=== PATIENT | female | born 1935 | race Caucasian/White ===

== ENCOUNTER 2018-11-18 18:54 | Inpatient (IN) | payer MEDICARE ==
[~2018-11-18] VITALS: Ht 167.6 cm; Wt 64.0 kg
--- NOTE | 2018-11-18 19:00 | NUR ---
Patient was BIBRA for shortness of breath. The yarn mercerizer operator reports she was changing the patient's diaper and rolled her away when the patient began gasping for air and became pale.Ptdenies any chest pain or difficulty breathing at this time. EMS reports the patient had an O2 saturation in the mid 80s upon arrival to the scene but improved to 96 when placed on a NR. Patient isnormally not on O2 at home per caregiver.
--- NOTE | 2018-11-18 19:02 | NUR ---
Report given to GARRETT Rich for PURA.
[2018-11-18] MEDS ORDERED: CARB-93 PO (19:04)
[2018-11-18] MEDS ORDERED: [UNRECOGNIZED DRUG - CODE] PO (19:04)
[2018-11-18] MEDS ORDERED: POLY17PO4 PO (19:04)
[2018-11-18] MEDS ORDERED: LACT10SO PO (19:04)
[2018-11-18] MEDS ORDERED: B CO1TAB6 PO (19:04)
[2018-11-18] MEDS ORDERED: FURO-145 PO (19:04)
[2018-11-18] MEDS ORDERED: GABA-534 PO (19:04)
[2018-11-18] MEDS ORDERED: LEVO175T7 PO (19:04)
[2018-11-18] MEDS ORDERED: CITA40TA11 PO (19:04)
[2018-11-18] MEDS ORDERED: RASA1TAB PO (19:04)
[2018-11-18] MEDS ORDERED: LOSA1TAB9 PO (19:04)
[2018-11-18] MEDS ORDERED: FISH1CAP16 PO (19:04)
[2018-11-18] MEDS ORDERED: AMLO5TAB9 PO (19:04)
[2018-11-18] MEDS ORDERED: OMEP20CA10 PO (19:04)
[2018-11-18] MEDS ORDERED: CHOL100044 PO (19:04)
[2018-11-18] MEDS ORDERED: MULT1TAB73 PO (19:04)
[2018-11-18] MEDS ORDERED: ROPI0.5T PO (19:04)
[2018-11-18] MEDS ORDERED: ASCO500T9 PO (19:04)
--- NOTE | 2018-11-18 19:19 | NUR ---
LOSS PREVENTION AGENT AT BEDSIDE FOR LAB DRAW.
[2018-11-18] MEDS ORDERED: IV NS 0.9% 1,000 ML BAG IV ONE (19:30)
[2018-11-18 19:36] LABS: BASOPHILS % (AUTO) 0.5 % (0.0-2.0); EOSINOPHILS % (AUTO) 0.9 % (0.0-6.0); HEMATOCRIT 30 % (33-45); HEMOGLOBIN 10.1 g/dL (11.5-14.8); LYMPHOCYTES # (AUTO) 0.5 /CMM (0.8-4.8); LYMPHOCYTES % (AUTO) 5.8 % (20.0-44.0); MEAN CORPUSCULAR HGB CONC 33 g/dl (31.0-36.0); MEAN CORPUSCULAR VOLUME 91 fL (82-100); MONOCYTES # (AUTO) 0.5 /CMM (0.1-1.30); MONOCYTES % (AUTO) 5.1 % (2.0-12.0); NEUTROPHILS # (AUTO) 8.1 /CMM (1.8-8.9); NEUTROPHILS % (AUTO) 87.7 % (43.0-81.0); PLATELET COUNT (AUTO) 271 /CMM (150-450); RED BLOOD CELL COUNT(AUTO) 3.33 MIL/uL (4.0-5.2); WHITE BLOOD COUNT (AUTO) 9.2 K/uL (4.3-11.0)
[2018-11-18 19:40] LABS: APPEARANCE,URINE Clear (CLEAR); BILIRUBIN,URINE Negative (NEGATIVE); BLOOD, URINE Small Ery/uL (NEGATIVE); COLOR,URINE Yellow (YELLOW); KETONES,URINE Negative (NEGATIVE); LEUKOCYTE ESTERASE ,URINE Moderate (NEGATIVE); NITRITE, URINE Negative (NEGATIVE); PH,URINE 7.5 (5.0-8.0); PROTEIN,URINE Trace mg/dl (NEGATIVE); UGLUCOSE Negative (NEGATIVE); UROBILINOGEN,URINE 0.2 EU/dL (0.2)
--- NOTE | 2018-11-18 19:45 | NUR ---
PT RESTING IN BED, NAD NOTED. RESPIRATIONS EVEN AND UNLABORED. PULSE OX 97 ON 3L N/C. CAREGIVER AT BEDSIDE. PT ON THE MONITOR AND PULSE OX.
[2018-11-18 19:48] LABS: CALCIUM, SERUM 9.4 mg/dL (8.5-10.1); CARBON DIOXIDE 31 mmol/L (21-32); CHLORIDE 101 mmol/L (98-107); CREATININE 2.1 mg/dL (0.6-1.3); GLUCOSE 105 mg/dL (74-106); POTASSIUM 4.1 mmol/L (3.5-5.1); SODIUM SERUM 138 mmol/L (136-145); UREA NITROGEN, BLOOD 31 mg/dL (7-18)
[2018-11-18 19:52] LABS: BACTERIA,URINE Many /HPF (None Seen); SQUAMOUS EPITHELIAL CELL,UR Few /HPF (None Seen)
[2018-11-18 20:02] LABS: ALANINE AMINOTRANSFERASE 10 U/L (12-78); ALBUMIN 2.7 g/dL (3.4-5.0); ALKALINE PHOSPHATASE 85 U/L (46-116); ASPARTATE AMINOTRANSFERASE 10 U/L (15-37); B-TYPE NATRIURETIC PEPTIDE 292 PG/ML (0-125); BILIRUBIN,DIRECT 0.1 mg/dL (0.0-0.2); BILIRUBIN,TOTAL 0.4 mg/dL (0.2-1.0); TOTAL PROTEIN, SERUM 6.3 g/dL (6.4-8.2)
[2018-11-18] MEDS ORDERED: LEVOFLOXACIN 750 MG /D5W 150ML PIGGYBACK IV ONE (20:30)
[2018-11-18] MEDS ORDERED: FUROSEMIDE 20 MG/2 ML VIAL IV ONE (20:30)
[2018-11-18] MEDS ORDERED: FUROSEMIDE 20 MG/2 ML VIAL ONE (20:39)
[2018-11-18] MEDS ORDERED: LEVOFLOXACIN 750 MG /D5W 150ML 150 ML IV ONE (20:40)
[2018-11-18] MEDS ORDERED: ONDANSETRON HCL/PF 4 MG/2 ML VIAL IVP PRN (21:00)
[2018-11-18] MEDS ORDERED: ACETAMINOPHEN 325 MG TABLET PO PRN ×2 (21:00→21:30)
[2018-11-18] MEDS ORDERED: HYDROCODONE/APAP 5/325MG 1 EACH TABLET PO PRN (21:00)
[2018-11-18] MEDS ORDERED: Z GUARD REMEDY 2 OZ OINT TP PRN (21:00)
[2018-11-18] MEDS ORDERED: ZOLPIDEM TARTRATE 5 MG TABLET PO PRN (21:00)
--- NOTE | 2018-11-18 21:18 | NUR ---
REPORT GIVEN TO RAYMOND TUCKER FOR PURA.
[2018-11-18] MEDS ORDERED: ACETAMINOPHEN 650 MG/20.3 ML UDC ONE (21:25)
[2018-11-18] MEDS ORDERED: ACETAMINOPHEN 650 MG/20.3 ML UDC NG PRN (21:30)
--- NOTE | 2018-11-18 22:00 | NUR ---
WEB COMMUNICATIONS SPECIALIST NOTES PT ARRIVED ON TO THE UNIT AT 2154 VIA GURNEY ACCOMPANIED BY CAREGIVER AND SON. PER CAREGIVER PT BECAME VERY SHORT OF BREATH AND FACIAL COLOR BECAME PALE. UPON ARRIVAL TO ED 02 SAT IN THE 80S. PT HAS A RIGHT AC #20, AND A LEFT FA #20 INTACT AND PATENT. PT HAS HX OF DEMENTIA, PT CONFUSED BUT COOPERATIVE. ALL PATIENT BELONGINGS ACCOUNTED FOR AND DOCUMENTED. PT HAS REDNESS OF SACRUM AND GROIN FOLDS. PT ORIENTED TO THE USE OF THE CALL LIGHT. PT TELE MONITORED AT NSR RATE IN 70S. SAFETY PRECAUTIONS IN PLACE, BED IN LOWEST LOCKED POSITION, X2 SIDE RAILS UP AND CALL LIGHT WITHIN REACH. WILL CONTINUE TO MONITOR.
[2018-11-18] MEDS ORDERED: VANCOMYCIN 1 GM VIAL ONE (22:55)
[2018-11-18] MEDS ORDERED: VANCOMYCIN 1 GM in IV D5W 250ml IV ONE (23:00)
--- NOTE | 2018-11-18 23:30 | NUR ---
RN NOTES CLARIFIED VANCO ORDER WITH DR LIZARRAGA. PER DR ZIA JAVED TO GIVE, CONTINUE TO MONITOR. PRN BENADRYL IF REACTION. PER DR LIZARRAGA, LASIX 40MG TEGAN TO GIVE 6 HOURS AFTER FIRST DOSE. WILL CARRY OUT ORDERED. Addendum: 11/18/18 at 6154 by RAYMOND KAUFFMAN RN ALSO PER DR LIZARRAGA. WANTS PT TO HAVE AGUILAR CATHETER TO MEASURE URINE OUTPUT.
[2018-11-19] MEDS ORDERED: PIPERACILLIN /TAZOBACTAM 2.25 G in IV D5W 50 ML IV ONE ×2
[2018-11-19] MEDS ORDERED: PIPERACILLIN /TAZOBACTAM 2.25 G VIAL IV ONE (00:06)
[2018-11-19] MEDS: FUROSEMIDE 40 MG/4 ML VIAL IV SCH ×2 (03:28→08:14)
--- NOTE | 2018-11-19 06:02 | NUR ---
RN CLOSING NOTES PT RESTING IN BED. PT ALERT TO SELF, COOPERATIVE. NO COMPLAINTS OF PAIN, SOB OR DISTRESS OVERNIGHT. PT HAS A RIGHT AC #20, AND A LEFT FA #20 INTACT AND PATENT. PT TELE MONITORED AT NSR RATE 60-70S. SAFETY PRECAUTIONS IN PLACE, BED IN LOWEST LOCKED POSITION, X2 SIDE RAILS UP AND CALL LIGHT WITHIN REACH. WILL ENDORSE TO DAY SHIFT NURSE FOR CONTINUITY OF CARE.
--- NOTE | 2018-11-19 07:20 | NUR ---
RN NOTES PATIENT A/OX1, BREATHING EVEN AND UNLABORED, ON O2 AT 2LPM VIA NC AND SATTING WELL, NO S/SX OF PAIN AT THIS TIME, KEPT COMFORTABLE, NEEDS ATTENDED AND MET, BED ALARM ON, SIDERAILS X2 UP, CALL LIGHT WITHIN REACH, WILL CONTINUE TOMONITOR.
[2018-11-19 07:26] LABS: B-TYPE NATRIURETIC PEPTIDE 609 PG/ML (0-125); BASOPHILS % (AUTO) 0.5 % (0.0-2.0); CARBON DIOXIDE 32 mmol/L (21-32); CHLORIDE 102 mmol/L (98-107); CREATININE 2.2 mg/dL (0.6-1.3); EOSINOPHILS % (AUTO) 2.3 % (0.0-6.0); GLUCOSE 90 mg/dL (74-106); HEMATOCRIT 29 % (33-45); HEMOGLOBIN 9.9 g/dL (11.5-14.8); LYMPHOCYTES % (AUTO) 17.6 % (20.0-44.0); MAGNESIUM 2.3 mg/dL (1.8-2.4); MEAN CORPUSCULAR HGB CONC 34 g/dl (31.0-36.0); MEAN CORPUSCULAR VOLUME 90 fL (82-100); MONOCYTES # (AUTO) 0.4 /CMM (0.1-1.30); MONOCYTES % (AUTO) 6.4 % (2.0-12.0); NEUTROPHILS # (AUTO) 4.2 /CMM (1.8-8.9); NEUTROPHILS % (AUTO) 73.2 % (43.0-81.0); PHOSPHORUS 4.5 mg/dL (2.5-4.9); PLATELET COUNT (AUTO) 226 /CMM (150-450); POTASSIUM 4.3 mmol/L (3.5-5.1); RED BLOOD CELL COUNT(AUTO) 3.26 MIL/uL (4.0-5.2); SODIUM SERUM 140 mmol/L (136-145); UREA NITROGEN, BLOOD 30 mg/dL (7-18); WHITE BLOOD COUNT (AUTO) 5.8 K/uL (4.3-11.0)
[2018-11-19] MEDS ORDERED: FEE PK DOSING 1 MIN EA MC ONE (07:27)
[2018-11-19 07:28] LABS: CHOLESTEROL 120 mg/dL (<200); HDL CHOLESTEROL 42 mg/dL (40-60); LDL 72 mg/dL (0-99); THYROID STIMULATING HORMONE 0.229 uIU/mL (0.358-3.74); TRIGLYCERIDES 69 mg/dL (30-150)
[2018-11-19] MEDS ORDERED: LEVOTHYROXINE SODIUM 175 MCG TABLET PO SCH (07:30)
[2018-11-19 08:00] VITALS: BP 129/67
[2018-11-19] MEDS: CITALOPRAM HYDROBROMIDE 20 MG TABLET PO SCH (08:05)
[2018-11-19] MEDS: ASPIRIN EC 81 MG TABLET.DR PO SCH (08:05)
[2018-11-19] MEDS: GABAPENTIN 300 MG CAPSULE PO SCH ×2 (08:05→16:29)
[2018-11-19] MEDS: CARBIDOPA/LEVODOPA 25/100 MG 1 UDTAB PO SCH ×3 (08:05→16:29)
[2018-11-19] MEDS: PANTOPRAZOLE 40 MG TABLET.DR PO SCH (08:06)
[2018-11-19] MEDS: PIPERACILLIN /TAZOBACTAM 3.375 G in IV D5W 100 ML IV SCH ×2 (09:09→20:12)
[2018-11-19] MEDS: FERROUS SULFATE (325 MG) 325 MG/TAB TABLET PO SCH ×2 (10:51→16:29)
[2018-11-19 16:00] VITALS: BP 113/60
[2018-11-19] MEDS: ropiniROLE 0.5 MG TABLET PO SCH (17:11)
--- NOTE | 2018-11-19 18:24 | NUR ---
RN NOTES PATIENT A/OX1, FAMILY AND CAREGIVER AT BEDSIDE, PATIENT IS PARTICULAR WITH MEALS, HOWEVER PREFERS PEANUT BUTTER AND JELLY SANDWICHES. BREATHING EVEN AND UNLABORED, IN ROOM AIR WITH O2 SAT OF 94%, NO SOB NOTED, DENIES PAIN OR DISCOMFORT, TURNED AND REPOSITIONED EVERY 2 HOURS, MEPILEX APPLIED TO SACRAL AREA, Z-GUARD APPLIED TO SURROUNDING AREA, NEEDS ATTENDED AND MET, CALL LIGHT WITHIN REACH, WILL ENDORSE TO KEYBOARD SPECIALIST FOR PUAR.
--- NOTE | 2018-11-19 19:39 | NUR ---
RN MS OPENING NOTES PT IN BED AWAKE, ALERT ORIENTEDX2 WITH SON AT BEDSIDE. BREATHING EVEN AND UNLABORED ON ROOM AIR, NO SOB NOTED. NO COMPLAINT OF PAIN OR DISCOMFORT AT THIS TIME. IV IN R FA #20G AND R AC #20G TKO. AGUILAR IN PLACE AND DRAINING TO CLEAR YELLOW, NO SEDIMENTS. BED IN LOWEST LOCKED POSITION, CALL LIGHT WITHIN REACH AT ALL TIMES, WILL CONTINUE TO MONITOR.
[2018-11-19 20:00] VITALS: BP 135/76
--- NOTE | 2018-11-20 06:04 | NUR ---
RN MS CLOSING NOTES PT REMAINS IN BED AWAKE, INTERMITTENTLY SLEEPING, ALERT ORIENTEDX2. BREATHING EVEN AND UNLABORED ON ROOM AIR, NO SOB NOTED. NO COMPLAINT OF PAIN OR DISCOMFORT AT THIS TIME. IV IN R FA #20G AND R AC #20G TKO. AGUILAR IN PLACE AND DRAINING TO CLEAR YELLOW, NO SEDIMENTS OUTPUT OF 1100ML. I MEDIUM BM. BED IN LOWEST LOCKED POSITION, CALL LIGHT WITHIN REACH AT ALL TIMES, WILL ENDORSE TO DAY NURSE FOR PURA..
--- NOTE | 2018-11-20 07:10 | NUR ---
RN NOTES PATIENT A/OX1, BREATHING EVEN AND UNLABORED, NO SOB NOTED, IV SITE PATENT AND INTACT, KEPT ON SALINE LOCK, KEPT PATIENT COMFORTABLE, NEEDS ATTENDED, CALL LIGHT WITHIN REACH, SAFETY MEASURES IN PLACED, WILL CONTINUE TO MONITOR.
[2018-11-20 07:41] LABS: BASOPHILS # (AUTO) 0.1 /CMM (0.0-0.2); BASOPHILS % (AUTO) 0.8 % (0.0-2.0); HEMATOCRIT 30 % (33-45); HEMOGLOBIN 10.4 g/dL (11.5-14.8); LYMPHOCYTES # (AUTO) 1.6 /CMM (0.8-4.8); LYMPHOCYTES % (AUTO) 23.6 % (20.0-44.0); MEAN CORPUSCULAR HGB CONC 35 g/dl (31.0-36.0); MEAN CORPUSCULAR VOLUME 90 fL (82-100); MONOCYTES # (AUTO) 0.5 /CMM (0.1-1.30); MONOCYTES % (AUTO) 7.7 % (2.0-12.0); NEUTROPHILS # (AUTO) 4.5 /CMM (1.8-8.9); NEUTROPHILS % (AUTO) 64.9 % (43.0-81.0); PLATELET COUNT (AUTO) 226 /CMM (150-450)
[2018-11-20 07:53] LABS: ALANINE AMINOTRANSFERASE 10 U/L (12-78); ALBUMIN 2.4 g/dL (3.4-5.0); ALKALINE PHOSPHATASE 70 U/L (46-116); ASPARTATE AMINOTRANSFERASE 12 U/L (15-37); BILIRUBIN,TOTAL 0.3 mg/dL (0.2-1.0); CALCIUM, SERUM 8.9 mg/dL (8.5-10.1); CARBON DIOXIDE 32 mmol/L (21-32); CHLORIDE 101 mmol/L (98-107); CREATININE 2.1 mg/dL (0.6-1.3); GLUCOSE 86 mg/dL (74-106); MAGNESIUM 2.1 mg/dL (1.8-2.4); PHOSPHORUS 3.4 mg/dL (2.5-4.9); POTASSIUM 3.5 mmol/L (3.5-5.1); SODIUM SERUM 140 mmol/L (136-145); TOTAL PROTEIN, SERUM 5.6 g/dL (6.4-8.2); UREA NITROGEN, BLOOD 28 mg/dL (7-18)
[2018-11-20 08:00] VITALS: BP 141/81
[2018-11-20] MEDS: ASPIRIN EC 81 MG TABLET.DR PO SCH (08:23)
[2018-11-20] MEDS: PIPERACILLIN /TAZOBACTAM 3.375 G in IV D5W 100 ML IV SCH ×2 (08:23→20:15)
[2018-11-20] MEDS: PANTOPRAZOLE 40 MG TABLET.DR PO SCH (08:23)
[2018-11-20] MEDS: CARBIDOPA/LEVODOPA 25/100 MG 1 UDTAB PO SCH ×3 (08:24→16:30)
[2018-11-20] MEDS: FERROUS SULFATE (325 MG) 325 MG/TAB TABLET PO SCH (08:24)
[2018-11-20] MEDS: CITALOPRAM HYDROBROMIDE 20 MG TABLET PO SCH (08:24)
[2018-11-20] MEDS: GABAPENTIN 300 MG CAPSULE PO SCH ×2 (08:24→16:30)
[2018-11-20] MEDS ORDERED: ASPI-1152 PO (10:25)
[2018-11-20] MEDS ORDERED: LEVO137T2 PO (10:25)
[2018-11-20] MEDS ORDERED: LEVO500T90 PO (10:25)
[2018-11-20] MEDS ORDERED: VANCOMYCIN 1 GM in IV D5W 250 ML IV SCH (11:00)
[2018-11-20 16:00] VITALS: BP 154/79
--- NOTE | 2018-11-20 16:00 | NUR ---
RN NOTES PATIENT HAS NOT VOIDED SINCE AGUILAR CATHETER HAS BEEN REMOVED, BLADDER SCAN DONE AND IT SHOWS >200ML, DR. ESCOBEDO MADE AWARE AND GAVE ORDER TO HOLD THE DISCHARGE, AND TO DO A BLADDER SCAN EVERY 6 HOURS, AND DO A STRAIGHT CATHETER IF URINE IS > 200CC. STOP WHEN PATIENT VOIDS. FAMILY AT BEDSIDE AND MADE AWARE. IN AND OUT STRAIGHT CATHETER DONE AND URINE OUTPUT SHOWS 500CC. WILL CONTINUE TO MONITOR.
[2018-11-20] MEDS: LACTOBACILLUS RHAMNOSUS GG 1 EACH CAP.SPRINK PO SCH (16:31)
[2018-11-20] MEDS: AMLODIPINE BESYLATE 5 MG TABLET PO SCH (16:31)
[2018-11-20] MEDS: ropiniROLE 0.5 MG TABLET PO SCH (17:49)
--- NOTE | 2018-11-20 18:41 | NUR ---
RN NOTES PATIENT IN NO DISTRESS, BREATHING EVEN AND UNLABORED, NO SOB NOTED, PATIENT STILL HASN'T VOIDED ON HER OWN, FAMILY AT BEDSIDE, SKIN CARE RENDERED, Z-GUARD APPLIED, TURNED AND REPOSITIONED EVERY 2 HOURS, CHET. HEELS OFFLOADED, NEEDS ATTENDED, CALL LIGHT WITHIN REACH, WILL ENDORSE TO SAFETY SUPERVISOR FOR PURA.
--- NOTE | 2018-11-20 19:58 | NUR ---
RN MS OPENING NOTES PT IN BED AWAKE, ALERT ORIENTEDX2. BREATHING EVEN AND UNLABORED ON ROOM AIR, NO SOB NOTED. NO COMPLAINT OF PAIN OR DISCOMFORT AT THIS TIME. IV IN R FA #20G AND L FA #20G TKO. BED IN LOWEST LOCKED POSITION, CALL LIGHT WITHIN REACH AT ALL TIMES, WILL CONTINUE TO MONITOR.
[2018-11-20 20:10] VITALS: BP 158/80
--- NOTE | 2018-11-21 | NUR ---
BLADDER SCAN SHOWS <200ML, STRAIGHT CATH INSERTED, 1200ML COLLECTED, CLEAR YELLOW, MINIMAL SEDIMENTS Addendum: 11/21/18 at 0615 by ROXANNE GROSSMAN RN >200ML
--- NOTE | 2018-11-21 05:00 | NUR ---
BLADDER SCAN SHOWED >200ML, STRAIGHT CATH INSERTED AND COLLECTED 375ML
--- NOTE | 2018-11-21 06:13 | NUR ---
RN MS CLOSING NOTES PT REMAINS IN BED AWAKE, INTERMITTENTLY SLEEPING, ALERT ORIENTEDX2. BREATHING EVEN AND UNLABORED ON ROOM AIR, NO SOB NOTED. NO COMPLAINT OF PAIN OR DISCOMFORT AT THIS TIME. IV IN R FA #20G AND R AC #20G TKO. NO BM. BED IN LOWEST LOCKED POSITION, CALL LIGHT WITHIN REACH AT ALL TIMES, WILL ENDORSE TO DAY NURSE FOR PURA..
[2018-11-21] MEDS: PANTOPRAZOLE 40 MG TABLET.DR PO SCH (07:30)
[2018-11-21 07:58] LABS: CALCIUM, SERUM 8.5 mg/dL (8.5-10.1); CARBON DIOXIDE 29 mmol/L (21-32); CHLORIDE 104 mmol/L (98-107); CREATININE 1.8 mg/dL (0.6-1.3); GLUCOSE 99 mg/dL (74-106); POTASSIUM 3.5 mmol/L (3.5-5.1); SODIUM SERUM 141 mmol/L (136-145); UREA NITROGEN, BLOOD 18 mg/dL (7-18)
[2018-11-21 08:00] VITALS: BP 139/88
[2018-11-21] MEDS: PIPERACILLIN /TAZOBACTAM 3.375 G in IV D5W 100 ML IV SCH ×2 (10:26→20:22)
[2018-11-21] MEDS: GABAPENTIN 300 MG CAPSULE PO SCH ×2 (10:27→17:42)
[2018-11-21] MEDS: CARBIDOPA/LEVODOPA 25/100 MG 1 UDTAB PO SCH ×3 (10:27→17:42)
[2018-11-21] MEDS: ASPIRIN EC 81 MG TABLET.DR PO SCH (10:27)
[2018-11-21] MEDS: LACTOBACILLUS RHAMNOSUS GG 1 EACH CAP.SPRINK PO SCH ×2 (10:27→17:42)
[2018-11-21] MEDS: CITALOPRAM HYDROBROMIDE 20 MG TABLET PO SCH (10:28)
[2018-11-21] MEDS: AMLODIPINE BESYLATE 5 MG TABLET PO SCH (10:36)
--- NOTE | 2018-11-21 11:15 | NUR ---
BLADDER SCAN PERFORMED, PT. HAD 533 CC OF URINE RETENTION ON BLADDER SCAN. PT. HAD PHYSICAL THERAPY, PATIENT MARCHED IN PLACE AND WAS PUT ON A BEDSIDE COMMODE AFTER TO HELP STIMULATE URINE OUTPUT.
--- NOTE | 2018-11-21 13:00 | NUR ---
ATTEMPTED TO STRAIGHT CATHETERIZE PT. THREE TIMES AND WAS UNABLE TO HAVE ANY URINE OUTPUT. WILL REPORT TO DOCTOR.
[2018-11-21 16:00] VITALS: BP 100/63
--- NOTE | 2018-11-21 17:15 | NUR ---
AGUILAR CATHETER WAS INSERTED PT. HAD 700 CC OF CLEAR, AND YELLOW URINE OUTPUT.
--- NOTE | 2018-11-21 18:00 | NUR ---
RN NOTES DISCUSSED WITH UROLOGIST ABOUT PT. CONDITION, AND DISCHARGE. PER UROLOGIST, PT. WAS SEEN LAST AND EVALUATED LAST NIGHT, AND THAT PT. WAS RECOMMENDED TO HAVE A AGUILAR CATHETER INSERTED AND CAN BE DISCHARGE HOME WITH A AGUILAR.
[2018-11-21] MEDS: ropiniROLE 0.5 MG TABLET PO SCH (18:29)
--- NOTE | 2018-11-21 19:10 | NUR ---
DISCHARGE NOTES PT. WAS DISCHARGED IN STABLE CONDITION WITH CAREGIVER AT BEDSIDE. AMBULANCE WILL TAX PREPARER PT. AT 1830. PER UROLOGIST PT. CAN BE DISCHARGE WITH A AGUILAR CATHETER HOME WITH CAREGIVER, AND FOLLOW UP WITH UROLOGIST IN 1 WEEK. DISCHARGE PACKET WAS SIGNED WITH ANOTHER NURSE. BELONGINGS LIST WAS CHECKED AND SIGNED. PT.'S SON, SKIP WAS INFORMED THAT AMBULANCE WILL TRANSFER PT. HOME, AND SAID THAT HE WILL MEET HER AT THE HOSPITAL BEFORE TRANSFER. ALL QUESTIONS ANSWERED. WILL ENDORSE DISCHARGE AND REPORT TO NURSE.
[2018-11-21 20:00] VITALS: BP 117/73
--- NOTE | 2018-11-21 20:08 | NUR ---
RN MS OPENING NOTES RECEIVED DISCHARGE REPORT FROM DAY NURSE, AWAITING AMBULANCE. PT READY, STABLE WITH FAMILY AT BEDSIDE.
--- NOTE | 2018-11-21 22:25 | NUR ---
AMBULANCE ARRIVED AT 2210, REPORT GIVEN TO EMT, PT IV REMOVED, D/C PACKAGED GIVEN TO SON AND DISCUSSED F/U CARE AND PRESCRIPTIONS. PT DISCHARGED
[2018-11-30] MEDS ORDERED: CEPH-569 PO (10:45)
== END 2018-11-21 22:25 | disposition home health service (06) | DRG 871 ==
LOC: ER 18:56 → TELE 21:04 → MED 11-19 09:12
PROVIDERS: ATTEND Student in an Organized Health Care Education/Training Program
DX: A41.9 Sepsis, unspecified organism (principal); J96.91 Respiratory failure, unspecified with hypoxia; I50.33 Acute on chronic diastolic (congestive) heart failure; E44.0 Moderate protein-calorie malnutrition; N17.9 Acute kidney failure, unspecified; N39.0 Urinary tract infection, site not specified; I13.0 Hypertensive heart and chronic kidney disease with heart failure and stage 1 through stage 4 chronic kidney disease, or unspecified chronic kidney disease; G20 Parkinson's disease; Z88.0 Allergy status to penicillin; Z79.899 Other long term (current) drug therapy; E03.9 Hypothyroidism, unspecified; D50.9 Iron deficiency anemia, unspecified; E55.9 Vitamin D deficiency, unspecified; E78.5 Hyperlipidemia, unspecified; F02.80 Dementia in other diseases classified elsewhere, unspecified severity, without behavioral disturbance, psychotic disturbance, mood disturbance, and anxiety; F03.90 Unspecified dementia, unspecified severity, without behavioral disturbance, psychotic disturbance, mood disturbance, and anxiety; F32.9 Major depressive disorder, single episode, unspecified; I25.10 Atherosclerotic heart disease of native coronary artery without angina pectoris; N18.9 Chronic kidney disease, unspecified; K59.00 Constipation, unspecified; K21.9 Gastro-esophageal reflux disease without esophagitis; R33.9 Retention of urine, unspecified
CPT/HCPCS: 36415; 71045-TC; 76770-TC; 80048-TC; 80053-TC; 80061-TC; 80076-TC; 80202-TC; 81000-TC; 82728-TC; 83540-TC; 83605-TC; 83735-TC; 83880; 84100-TC; 84439-TC; 84443-TC; 84484-TC; 85025-TC; 85730-TC; 86706; 86803; 87040-TC; 87081-TC; 87086-TC; 87186-TC; 87340; 87400; 87806; 93307-TC; 97530-TC; G0378; J1940; J1956; J2543; J3370; J7030; J7050; J7060

== ENCOUNTER 2018-11-28 14:37 | Inpatient (IN) | payer MEDICARE ==
[~2018-11-28] VITALS: Ht 165.1 cm; Wt 64.0 kg
[~2018-11-28 14:37] MED LIST: AMLO5TAB9 PO; ASCO500T9 PO; ASPI-1152 PO; B CO1TAB6 PO; CARB-93 PO; CHOL100044 PO; CITA40TA11 PO; FISH1CAP16 PO; GABA-534 PO; LACT10SO PO; LEVO137T2 PO; LEVO500T90 PO; MULT1TAB73 PO; OMEP20CA10 PO; POLY17PO4 PO; RASA1TAB PO; ROPI0.5T PO; [UNRECOGNIZED DRUG - CODE] PO
--- NOTE | 2018-11-28 14:46 | NUR ---
PT BIB RA for episode of altered mental status at home. PT IS AAOX1, NOT IN RESPIRATORY DISTRESS, V/S STABLE, KEPT RESTED AND COMFORTABLE. WILL CONTINUE TO MONITOR.
[2018-11-28] MEDS ORDERED: IV NS 0.9% 1,000 ML BAG IV ONE (15:00)
--- NOTE | 2018-11-28 15:00 | NUR ---
SEEN AND EXAMINED BY DR. BLACK.
[2018-11-28 15:07] LABS: BASOPHILS # (AUTO) 0.1 /CMM (0.0-0.2); BASOPHILS % (AUTO) 1.3 % (0.0-2.0); EOSINOPHILS % (AUTO) 2.6 % (0.0-6.0); HEMATOCRIT 30 % (33-45); HEMOGLOBIN 10.3 g/dL (11.5-14.8); LYMPHOCYTES # (AUTO) 1.8 /CMM (0.8-4.8); LYMPHOCYTES % (AUTO) 26.6 % (20.0-44.0); MEAN CORPUSCULAR HGB CONC 34 g/dl (31.0-36.0); MEAN CORPUSCULAR VOLUME 90 fL (82-100); MONOCYTES # (AUTO) 0.4 /CMM (0.1-1.30); MONOCYTES % (AUTO) 5.9 % (2.0-12.0); NEUTROPHILS # (AUTO) 4.3 /CMM (1.8-8.9); NEUTROPHILS % (AUTO) 63.6 % (43.0-81.0); PLATELET COUNT (AUTO) 243 /CMM (150-450); RED BLOOD CELL COUNT(AUTO) 3.38 MIL/uL (4.0-5.2); WHITE BLOOD COUNT (AUTO) 6.7 K/uL (4.3-11.0)
--- NOTE | 2018-11-28 15:10 | NUR ---
PT LABS DRAWNED AND SENT TO LAB. AWAITING RESULTS.
[2018-11-28 15:22] LABS: CALCIUM, SERUM 9.5 mg/dL (8.5-10.1); CARBON DIOXIDE 31 mmol/L (21-32); CHLORIDE 101 mmol/L (98-107); CREATININE 2.4 mg/dL (0.6-1.3); GLUCOSE 102 mg/dL (74-106); POTASSIUM 4.1 mmol/L (3.5-5.1); SODIUM SERUM 135 mmol/L (136-145); UREA NITROGEN, BLOOD 30 mg/dL (7-18)
[2018-11-28 15:33] LABS: ALANINE AMINOTRANSFERASE 8 U/L (12-78); ALBUMIN 2.6 g/dL (3.4-5.0); ALKALINE PHOSPHATASE 74 U/L (46-116); ASPARTATE AMINOTRANSFERASE 11 U/L (15-37); BILIRUBIN,TOTAL 0.2 mg/dL (0.2-1.0); LIPASE 135 U/L (73-393); TOTAL PROTEIN, SERUM 5.7 g/dL (6.4-8.2)
[2018-11-28 16:49] LABS: APPEARANCE,URINE Clear (CLEAR); BILIRUBIN,URINE Negative (NEGATIVE); BLOOD, URINE Small Ery/uL (NEGATIVE); COLOR,URINE Yellow (YELLOW); KETONES,URINE Trace (NEGATIVE); LEUKOCYTE ESTERASE ,URINE Trace (NEGATIVE); NITRITE, URINE Negative (NEGATIVE); PROTEIN,URINE >=300 mg/dl (NEGATIVE); UGLUCOSE Negative (NEGATIVE); UROBILINOGEN,URINE 0.2 EU/dL (0.2)
--- NOTE | 2018-11-28 16:50 | NUR ---
URINE SPECIMEN COLLECTED AND SENT TO LAB.
[2018-11-28 17:02] LABS: BACTERIA,URINE Few /HPF (None Seen); SQUAMOUS EPITHELIAL CELL,UR Few /HPF (None Seen); YEAST,URINE Moderate /HPF (None Seen)
[2018-11-28 17:03] LABS: MUCUS,URINE Moderate /LPF (None Seen); URINE AMORPHOUS URATE Moderate /HPF (None Seen)
[2018-11-28] MEDS ORDERED: FLUCONAZOLE (100 MG) 100 MG TABLET PO ONE (17:30)
[2018-11-28] MEDS ORDERED: FLUCONAZOLE (100 MG) 100 MG TABLET ONE (17:36)
[2018-11-28] MEDS ORDERED: PIPERACILLIN /TAZOBACTAM 3.375 G in IV D5W 50 ML IV ONE (18:00)
--- NOTE | 2018-11-28 18:23 | NUR ---
ADMIT TO [facility] 314-1 DX UTI, AMS, DEHYDRATION ACCEPTING YOSELIN
--- NOTE | 2018-11-28 19:01 | NUR ---
REPORT GIVEN TO GARRETT ANGULO FOR PURA.
[2018-11-28] MEDS ORDERED: IV NS 0.9% 1,000 ML IV PRN (19:03)
--- NOTE | 2018-11-28 19:20 | NUR ---
MANAGER FUND OPENING NOTES: RECEIVED PT ON 2LPM VIA NC AND IS TOLERATING WELL. SON AND CAREGIVER AT BEDSIDE. PT IS A/OX1 TO NAME ONLY. NO SOB NOTED. NO S/S OF DISTRESS. PT NOT VERBALIZING ANY PAIN. PT HAS AGUILAR CATH AND IS ATTACHED TO DRAINAGE BAG. PT HAS L FOREARM #20G AND IS PATENT AND INTACT. PT TO BE PLACED ON TELE MONITOR. BED KEPT IN LOW, LOCKED POSITION, AND SIDE RAILS X 2UP. BED ALARM ACTIVATED. WILL CONTINUE TO MONITOR PT.
[2018-11-28] MEDS ORDERED: Z GUARD REMEDY 2 OZ OINT TP PRN (19:30)
[2018-11-28] MEDS ORDERED: ZOLPIDEM TARTRATE 5 MG TABLET PO PRN (19:30)
[2018-11-28] MEDS ORDERED: ONDANSETRON HCL/PF 4 MG/2 ML VIAL IVP PRN (19:30)
[2018-11-28] MEDS ORDERED: ACETAMINOPHEN 325 MG TABLET PO PRN (19:30)
[2018-11-28] MEDS ORDERED: MAG HYDROX/AL HYDROX/SIMETH 30 ML UDC PO PRN (19:30)
[2018-11-28] MEDS ORDERED: HYDROCODONE/APAP 5/325MG 1 EACH TABLET PO PRN (19:30)
[2018-11-28] MEDS ORDERED: MAGNESIUM HYDROXIDE 30 ML UDC PO PRN (19:30)
[2018-11-28 20:00] VITALS: BP 109/55
[2018-11-28] MEDS: LACTULOSE 10 G/15 ML UDC (PYXIS) PO SCH (20:54)
[2018-11-28] MEDS ORDERED: QUET25TA PO (22:39)
[2018-11-28] MEDS ORDERED: CEFTRIAXONE 1 G VIAL ONE (23:36)
[2018-11-28] MEDS: CEFTRIAXONE 1 G in IV D5W 50 ML IV SCH (23:43)
[2018-11-29] VITALS: BP 117/60
[2018-11-29 04:00] VITALS: BP 111/56
--- NOTE | 2018-11-29 06:51 | NUR ---
DEOILING MACHINE OPERATOR CLOSING NOTES: ALL NEEDS WERE ATTENDED AND ANTICIPATED FOR. PT KEPT CLEAN, DRY, AND COMFORTABLE. PT REMAINS ON 2LPM VIA NC AND IS TOLERATING WELL. PT ASLEEP AT THIS TIME AND RESTING COMFORTABLY. PT HAS AGUILAR CATH AND IS ATTACHED TO DRAINAGE BAG WITH YELLOW URINE DRAINING. OUTPUT WAS 1125ML. PT HAS IV ON L FOREARM #20G AND IS PATENT AND INTACT. CURRENTLY H/L. BED ALARM ACTIVATED. PT ON TELE BOX AND READING SHOWS SR 64 WITH OCCASIONAL PVCS AND PACS. BED KEPT IN LOW, LOCKED POSITION, AND SIDE RAILS X 2UP. WILL ENDORSE TO AM NURSE FOR PURA.
[2018-11-29 07:31] LABS: CHOLESTEROL 127 mg/dL (<200); HDL CHOLESTEROL 37 mg/dL (40-60); LDL 81 mg/dL (0-99); TRIGLYCERIDES 90 mg/dL (30-150)
[2018-11-29 07:35] LABS: BASOPHILS % (AUTO) 0.7 % (0.0-2.0); EOSINOPHILS % (AUTO) 3.8 % (0.0-6.0); HEMATOCRIT 30 % (33-45); HEMOGLOBIN 10.2 g/dL (11.5-14.8); LYMPHOCYTES # (AUTO) 1.8 /CMM (0.8-4.8); LYMPHOCYTES % (AUTO) 28.2 % (20.0-44.0); MEAN CORPUSCULAR HGB CONC 34 g/dl (31.0-36.0); MEAN CORPUSCULAR VOLUME 89 fL (82-100); MONOCYTES # (AUTO) 0.4 /CMM (0.1-1.30); MONOCYTES % (AUTO) 6.5 % (2.0-12.0); NEUTROPHILS % (AUTO) 60.8 % (43.0-81.0); PLATELET COUNT (AUTO) 234 /CMM (150-450); RED BLOOD CELL COUNT(AUTO) 3.34 MIL/uL (4.0-5.2); WHITE BLOOD COUNT (AUTO) 6.5 K/uL (4.3-11.0)
[2018-11-29 07:36] LABS: CALCIUM, SERUM 9.4 mg/dL (8.5-10.1); CARBON DIOXIDE 29 mmol/L (21-32); CHLORIDE 103 mmol/L (98-107); CREATININE 2.1 mg/dL (0.6-1.3); GLUCOSE 83 mg/dL (74-106); MAGNESIUM 2.4 mg/dL (1.8-2.4); PHOSPHORUS 4.1 mg/dL (2.5-4.9); POTASSIUM 4.2 mmol/L (3.5-5.1); SODIUM SERUM 140 mmol/L (136-145); UREA NITROGEN, BLOOD 28 mg/dL (7-18)
[2018-11-29 08:00] VITALS: BP 110/75
--- NOTE | 2018-11-29 08:00 | NUR ---
ms rn received on bed,awake,confused,not in any form of distress, respirations even and unlabored,no sob noted, lungs are clear,abdomen soft,positive bowel sounds,denies pain at this time.
[2018-11-29] MEDS: CARBIDOPA/LEVODOPA 25/100 MG 1 UDTAB PO SCH ×3 (09:00→17:15)
[2018-11-29] MEDS: LACTULOSE 10 G/15 ML UDC (PYXIS) PO SCH ×3 (09:00→17:16)
--- NOTE | 2018-11-29 09:20 | NUR ---
ms rn due meds given.tolerated well.
--- NOTE | 2018-11-29 10:00 | NUR ---
ms rn child care teacher at bedside. iv heplock inserted at left forearm g22, w/ good venous return.
[2018-11-29] MEDS: GABAPENTIN 300 MG CAPSULE PO SCH ×2 (12:21→17:16)
[2018-11-29] MEDS: ASCORBIC ACID 500 MG TABLET PO SCH (12:22)
[2018-11-29] MEDS: LEVOTHYROXINE SODIUM 137 MCG TABLET PO SCH (12:23)
[2018-11-29] MEDS: MULTIVITAMINS,THERAGRAN 1 UDTAB TABLET PO SCH (12:23)
[2018-11-29] MEDS: PANTOPRAZOLE 40 MG TABLET.DR PO SCH (12:23)
[2018-11-29] MEDS: CHOLECALCIFEROL 1,000 UNIT TABLET (VIT D3) PO SCH (12:23)
[2018-11-29] MEDS: POLYETHYLENE GLYCOL 3350 17 GM POWD.PACK PO SCH ×2 (12:24→17:16)
[2018-11-29] MEDS: CITALOPRAM HYDROBROMIDE 20 MG TABLET PO SCH (12:24)
[2018-11-29] MEDS: VITAMIN B COMP W-C 1 TAB TABLET PO SCH (12:24)
[2018-11-29] MEDS: CALCIUM CITRATE(CITRACAL) /VITAMIN D 1 TAB TABLET PO SCH (12:29)
[2018-11-29] MEDS: ASPIRIN EC 81 MG TABLET.DR PO SCH (12:30)
[2018-11-29 16:00] VITALS: BP 117/62
[2018-11-29] MEDS: AMLODIPINE BESYLATE 5 MG TABLET PO SCH (17:16)
[2018-11-29] MEDS ORDERED: ropiniROLE 0.5 MG TABLET PO SCH (18:00)
--- NOTE | 2018-11-29 19:35 | NUR ---
RN OPENING NOTES RECEIVED REPORT FROM DAYSHIFT RNCUCO. FOUND Pt AWAKE, RESTING IN BED. FAMILY VISITING AT BEDSIDE. NO S/S OF ACUTE DISTRESS OR SOB NOTED. RESPIRATIONS EVEN AND UNLABORED. Pt IS A/OX1, CONFUSED, PER BASELINE. AGUILAR IN PLACE. IV ACCESS ON LFA #20G. SAFETY MEASURES IN PLACE. BED LOW, LOCKED, HOB ELEVATED, SIDE RAILS UP, CALL LIGHT AND BEDSIDE TABLE WITHIN REACH. WILL CONTINUE TO MONITOR Pt's CONDITION AND SAFETY THROUGHOUT THE NIGHT.
[2018-11-29 20:00] VITALS: BP 116/60
[2018-11-29] MEDS: CEFTRIAXONE 1 G in IV D5W 50 ML IV SCH (23:32)
--- NOTE | 2018-11-30 06:27 | NUR ---
RN CLOSING NOTES NO SIGNIFICANT CHANGES IN Pt's CONDITION. Pt REMAINS STABLE PER BASELINE. Pt IS RESTING COMFORTABLY IN BED. RESPIRATIONS EVEN AND UNLABORED. NO S/S OF ACUTE DISTRESS OR SOB NOTED DURING THE NIGHT. ALL NEEDS MET AND ATTENDED TO. SAFETY MEASURES IN PLACE. WILL ENDORSE TO DAYSHIFT RN FOR Pt's PURA.
[2018-11-30 07:01] LABS: BASOPHILS % (AUTO) 0.5 % (0.0-2.0); EOSINOPHILS % (AUTO) 3.8 % (0.0-6.0); HEMATOCRIT 31 % (33-45); HEMOGLOBIN 10.7 g/dL (11.5-14.8); LYMPHOCYTES # (AUTO) 1.9 /CMM (0.8-4.8); LYMPHOCYTES % (AUTO) 26.4 % (20.0-44.0); MEAN CORPUSCULAR HGB CONC 34 g/dl (31.0-36.0); MEAN CORPUSCULAR VOLUME 89 fL (82-100); MONOCYTES # (AUTO) 0.5 /CMM (0.1-1.30); MONOCYTES % (AUTO) 6.5 % (2.0-12.0); NEUTROPHILS # (AUTO) 4.6 /CMM (1.8-8.9); NEUTROPHILS % (AUTO) 62.8 % (43.0-81.0); PLATELET COUNT (AUTO) 241 /CMM (150-450); RED BLOOD CELL COUNT(AUTO) 3.52 MIL/uL (4.0-5.2); WHITE BLOOD COUNT (AUTO) 7.3 K/uL (4.3-11.0)
[2018-11-30 07:27] LABS: CARBON DIOXIDE 28 mmol/L (21-32); CHLORIDE 107 mmol/L (98-107); CREATININE 1.7 mg/dL (0.6-1.3); GLUCOSE 92 mg/dL (74-106); POTASSIUM 3.9 mmol/L (3.5-5.1); SODIUM SERUM 143 mmol/L (136-145); UREA NITROGEN, BLOOD 25 mg/dL (7-18)
--- NOTE | 2018-11-30 07:55 | NUR ---
ms rn received on bed, awake,alert,oriented x 1,not in any form of distress, respirations even and unlabored,no sob noted, lungs are diminish,abdomen soft,positive bowel sounds,denies pain at this time,will monitor patient's condition.
[2018-11-30 08:00] VITALS: BP 126/76
--- NOTE | 2018-11-30 09:00 | NUR ---
gloria wood breakfast served,due meds given,tolerated well.
[2018-11-30] MEDS: MULTIVITAMINS,THERAGRAN 1 UDTAB TABLET PO SCH (09:57)
[2018-11-30] MEDS: CITALOPRAM HYDROBROMIDE 20 MG TABLET PO SCH (09:57)
[2018-11-30] MEDS: GABAPENTIN 300 MG CAPSULE PO SCH (09:57)
[2018-11-30] MEDS: ASPIRIN EC 81 MG TABLET.DR PO SCH (09:57)
[2018-11-30 09:58] VITALS: BP 146/76
[2018-11-30] MEDS: LEVOTHYROXINE SODIUM 137 MCG TABLET PO SCH (09:58)
[2018-11-30] MEDS: VITAMIN B COMP W-C 1 TAB TABLET PO SCH (09:58)
[2018-11-30] MEDS: CHOLECALCIFEROL 1,000 UNIT TABLET (VIT D3) PO SCH (09:58)
[2018-11-30] MEDS: POLYETHYLENE GLYCOL 3350 17 GM POWD.PACK PO SCH (09:58)
[2018-11-30] MEDS: LACTULOSE 10 G/15 ML UDC (PYXIS) PO SCH ×2 (09:58→14:16)
[2018-11-30] MEDS: AMLODIPINE BESYLATE 5 MG TABLET PO SCH (09:58)
[2018-11-30] MEDS: ASCORBIC ACID 500 MG TABLET PO SCH (09:58)
[2018-11-30] MEDS: CARBIDOPA/LEVODOPA 25/100 MG 1 UDTAB PO SCH ×2 (09:58→14:16)
[2018-11-30] MEDS: CALCIUM CITRATE(CITRACAL) /VITAMIN D 1 TAB TABLET PO SCH (10:00)
--- NOTE | 2018-11-30 10:00 | NUR ---
ms rn was seen by adriel kumar/ order to go home today.
[2018-11-30] MEDS: PANTOPRAZOLE 40 MG TABLET.DR PO SCH (10:02)
[2018-11-30] MEDS ORDERED: CEPH-569 PO (10:45)
--- NOTE | 2018-11-30 12:00 | NUR ---
ms rn career portals teacher came, made aware of discharge.
--- NOTE | 2018-11-30 14:00 | NUR ---
ms rn went home accompanied son via ambulance,no distress noted.
== END 2018-11-30 15:20 | disposition home or self-care (01) | DRG 682 ==
LOC: ER 14:39 → MED 18:38 → TELE 20:22 → MED 11-29 10:19
PROVIDERS: ADMIT Internal Medicine; ATTEND Nurse Practitioner Acute Care
DX: N17.0 Acute kidney failure with tubular necrosis (principal); G93.41 Metabolic encephalopathy; N39.0 Urinary tract infection, site not specified; E44.0 Moderate protein-calorie malnutrition; I50.32 Chronic diastolic (congestive) heart failure; I11.0 Hypertensive heart disease with heart failure; D50.9 Iron deficiency anemia, unspecified; E03.9 Hypothyroidism, unspecified; E55.9 Vitamin D deficiency, unspecified; E78.5 Hyperlipidemia, unspecified; F03.90 Unspecified dementia, unspecified severity, without behavioral disturbance, psychotic disturbance, mood disturbance, and anxiety; G20 Parkinson's disease; F32.9 Major depressive disorder, single episode, unspecified; I25.10 Atherosclerotic heart disease of native coronary artery without angina pectoris; K21.9 Gastro-esophageal reflux disease without esophagitis; K59.00 Constipation, unspecified; Z79.82 Long term (current) use of aspirin
CPT/HCPCS: 36415; 70450-TC; 71045-TC; 80048-TC; 80061-TC; 80076-TC; 81000-TC; 83690-TC; 83735-TC; 84100-TC; 84484-TC; 85025-TC; 85730-TC; 87081-TC; 87086-TC; G0378; J0696; J2543; J7030; J7060

== ENCOUNTER 2019-07-29 11:03 | Inpatient (IN) | payer MEDICARE, BC ==
[~2019-07-29] VITALS: Ht 165.1 cm; Wt 70.8 kg
[~2019-07-29 11:03] MED LIST changes: +CEPH-569 PO; -OMEP20CA10 PO; +OMEP20CA11 PO; +QUET25TA PO
[2019-07-29] MEDS ORDERED: MAGNESIUM CITRATE 296 ML BOTTLE ONE (11:53)
[2019-07-29] MEDS ORDERED: BISACODYL SUPP (10 MG) 10 MG/SUPP.RECT SUPP.RECT RC ONE ×2 (11:53→12:00)
[2019-07-29] MEDS ORDERED: IV NS 0.9% 1,000 ML BAG IV ONE (12:00)
[2019-07-29] MEDS ORDERED: MAGNESIUM CITRATE 296 ML BOTTLE PO ONE (12:00)
[2019-07-29] MEDS ORDERED: VITA1TAB56 PO (12:15)
[2019-07-29] MEDS ORDERED: LEVO150T8 PO (12:15)
[2019-07-29] MEDS ORDERED: POTA20TA83 PO (12:15)
[2019-07-29] MEDS ORDERED: ROPI6TAB PO (12:15)
[2019-07-29] MEDS ORDERED: LOSA1TAB39 PO (12:15)
[2019-07-29] MEDS ORDERED: FURO-145 PO (12:15)
[2019-07-29] MEDS ORDERED: CALC500T52 PO (12:18)
[2019-07-29 12:21] LABS: BASOPHILS % (AUTO) 0.5 % (0.0-2.0); EOSINOPHILS % (AUTO) 0.7 % (0.0-6.0); HEMATOCRIT 33 % (33-45); HEMOGLOBIN 11.3 g/dL (11.5-14.8); LYMPHOCYTES # (AUTO) 2.1 /CMM (0.8-4.8); LYMPHOCYTES % (AUTO) 24.3 % (20.0-44.0); MEAN CORPUSCULAR HGB CONC 34 g/dl (31.0-36.0); MEAN CORPUSCULAR VOLUME 91 fL (82-100); MONOCYTES # (AUTO) 0.4 /CMM (0.1-1.30); MONOCYTES % (AUTO) 4.2 % (2.0-12.0); NEUTROPHILS % (AUTO) 70.3 % (43.0-81.0); PLATELET COUNT (AUTO) 255 /CMM (150-450); RED BLOOD CELL COUNT(AUTO) 3.68 MIL/uL (4.0-5.2); WHITE BLOOD COUNT (AUTO) 8.6 K/uL (4.3-11.0)
[2019-07-29 12:36] LABS: CALCIUM, SERUM 9.2 mg/dL (8.5-10.1); CARBON DIOXIDE 28 mmol/L (21-32); CHLORIDE 100 mmol/L (98-107); CREATININE 1.2 mg/dL (0.6-1.3); GLUCOSE 94 mg/dL (74-106); POTASSIUM 3.8 mmol/L (3.5-5.1); SODIUM SERUM 135 mmol/L (136-145); UREA NITROGEN, BLOOD 16 mg/dL (7-18)
[2019-07-29] MEDS ORDERED: IOHEXOL-300 100 ML VIAL IV ONE (12:41)
[2019-07-29 12:42] LABS: ALANINE AMINOTRANSFERASE 6 U/L (12-78); ALBUMIN 2.7 g/dL (3.4-5.0); ALKALINE PHOSPHATASE 81 U/L (46-116); ASPARTATE AMINOTRANSFERASE 13 U/L (15-37); BILIRUBIN,DIRECT 0.1 mg/dL (0.0-0.2); BILIRUBIN,TOTAL 0.4 mg/dL (0.2-1.0); SERUM AMMONIA < 10 umol/L (11-32); TOTAL PROTEIN, SERUM 5.9 g/dL (6.4-8.2)
[2019-07-29 12:50] LABS: THYROID STIMULATING HORMONE 2.858 uIU/mL (0.358-3.74)
[2019-07-29 15:00] VITALS: BP 113/56
[2019-07-29] MEDS ORDERED: MAGNESIUM CITRATE 296 ML BOTTLE PO PRN (15:30)
[2019-07-29] MEDS ORDERED: ONDANSETRON HCL/PF 4 MG/2 ML VIAL IVP PRN (15:30)
[2019-07-29] MEDS ORDERED: MORPHINE SULFATE INJ 2 MG/ML DISP.SYRIN IV PRN (15:30)
[2019-07-29] MEDS ORDERED: ACETAMINOPHEN 325 MG TABLET PO PRN (15:30)
[2019-07-29] MEDS ORDERED: MAGNESIUM HYDROXIDE 30 ML UDC PO PRN (15:30)
[2019-07-29] MEDS ORDERED: HYDROCODONE/APAP 5/325MG 1 EACH TABLET PO PRN (15:30)
[2019-07-29] MEDS ORDERED: TEMAZEPAM 7.5 MG CAPSULE PO PRN (15:30)
[2019-07-29] MEDS ORDERED: POLYETHYLENE GLYCOL 3350 17 GM POWD.PACK PO PRN (15:30)
[2019-07-29] MEDS ORDERED: MAG HYDROX/AL HYDROX/SIMETH 30 ML UDC PO PRN (15:30)
[2019-07-29 15:53] VITALS: BP 113/56
[2019-07-29] MEDS: IV NS 0.9% 1,000 ML IV PRN (16:30)
[2019-07-29] MEDS: CEFTRIAXONE 1 G in IV D5W 50 ML IV SCH (16:30)
[2019-07-29] MEDS: DOCUSATE SODIUM 250 MG CAPSULE PO SCH (16:30)
[2019-07-29 20:00] VITALS: BP 123/64
[2019-07-29 22:32] LABS: APPEARANCE,URINE SL CLOUDY (CLEAR); BILIRUBIN,URINE NEGATIVE (NEGATIVE); BLOOD, URINE TRACE Ery/uL (NEGATIVE); COLOR,URINE YELLOW (YELLOW); KETONES,URINE NEGATIVE (NEGATIVE); LEUKOCYTE ESTERASE ,URINE 1+ (NEGATIVE); NITRITE, URINE POSITIVE (NEGATIVE); PH,URINE 6.5 (5.0-8.0); PROTEIN,URINE TRACE mg/dl (NEGATIVE); UGLUCOSE NEGATIVE (NEGATIVE); UROBILINOGEN,URINE 0.2 EU/dL (0.2)
[2019-07-29 22:49] LABS: BACTERIA,URINE None seen /HPF (None Seen); RBC,URINE 0-2 /HPF (0-2); SQUAMOUS EPITHELIAL CELL,UR Moderate /HPF (None Seen)
[2019-07-30 04:00] VITALS: BP 111/71
[2019-07-30] MEDS: IV NS 0.9% 1,000 ML IV PRN ×2 (05:00→18:01)
[2019-07-30 06:36] LABS: BASOPHILS % (AUTO) 0.4 % (0.0-2.0); EOSINOPHILS % (AUTO) 0.7 % (0.0-6.0); HEMATOCRIT 36 % (33-45); LYMPHOCYTES # (AUTO) 2.2 /CMM (0.8-4.8); LYMPHOCYTES % (AUTO) 18.8 % (20.0-44.0); MEAN CORPUSCULAR HGB CONC 33 g/dl (31.0-36.0); MEAN CORPUSCULAR VOLUME 91 fL (82-100); MONOCYTES # (AUTO) 0.6 /CMM (0.1-1.30); MONOCYTES % (AUTO) 5.5 % (2.0-12.0); NEUTROPHILS # (AUTO) 8.8 /CMM (1.8-8.9); NEUTROPHILS % (AUTO) 74.6 % (43.0-81.0); PLATELET COUNT (AUTO) 261 /CMM (150-450); RED BLOOD CELL COUNT(AUTO) 3.97 MIL/uL (4.0-5.2); WHITE BLOOD COUNT (AUTO) 11.8 K/uL (4.3-11.0)
[2019-07-30 06:55] LABS: CREATININE 1.1 mg/dL (0.6-1.3); PHOSPHORUS 3.5 mg/dL (2.5-4.9)
[2019-07-30 07:00] LABS: THYROID STIMULATING HORMONE 3.34 uIU/mL (0.358-3.74)
[2019-07-30 07:53] LABS: MAGNESIUM 4.4 mg/dL (1.8-2.4)
[2019-07-30] MEDS: DOCUSATE SODIUM 250 MG CAPSULE PO SCH (08:25)
[2019-07-30] MEDS ORDERED: Z GUARD REMEDY 4 OZ OINT TP PRN (11:30)
[2019-07-30] MEDS ORDERED: CITALOPRAM HYDROBROMIDE SOLN 10 MG/5 ML UDC PO SCH (13:30)
[2019-07-30] MEDS ORDERED: LEVOTHYROXINE SODIUM 150 MCG TABLET PO SCH (13:30)
[2019-07-30] MEDS: ASCORBIC ACID 500 MG TABLET PO SCH (14:39)
[2019-07-30] MEDS: CHOLECALCIFEROL 1,000 UNIT TABLET (VIT D3) PO SCH (14:39)
[2019-07-30] MEDS: CARBIDOPA/LEVODOPA 25/100 MG 1 UDTAB PO SCH ×2 (14:39→17:05)
[2019-07-30] MEDS: CALCIUM CARBONATE (1250) 500 MG TABLET PO SCH (14:39)
[2019-07-30] MEDS: VITAMIN B COMP W-C 1 TAB TABLET PO SCH (14:39)
[2019-07-30] MEDS: ENOXAPARIN SODIUM 30 MG/0.3 ML DISP.SYRIN SQ SCH (14:40)
[2019-07-30 16:00] VITALS: BP 127/64
[2019-07-30] MEDS: CEFTRIAXONE 1 G in IV D5W 50 ML IV SCH (16:30)
[2019-07-30] MEDS ORDERED: GABAPENTIN 300 MG CAPSULE PO SCH (18:00)
[2019-07-30] MEDS ORDERED: QUETIAPINE FUMARATE 25 MG TABLET PO SCH (18:00)
[2019-07-30] MEDS ORDERED: ropiniROLE 0.5 MG TABLET PO SCH (18:00)
[2019-07-30 20:00] VITALS: BP 89/47
[2019-07-30 21:23] VITALS: BP 89/47
[2019-07-31] VITALS: BP 101/67
[2019-07-31 00:49] VITALS: BP 101/67
[2019-07-31 04:00] VITALS: BP 131/77
[2019-07-31 05:01] VITALS: BP 131/77
[2019-07-31] MEDS: IV NS 0.9% 1,000 ML IV PRN (05:50)
[2019-07-31 07:13] LABS: ALANINE AMINOTRANSFERASE < 6 U/L (12-78); ALBUMIN 2.1 g/dL (3.4-5.0); ALKALINE PHOSPHATASE 70 U/L (46-116); ASPARTATE AMINOTRANSFERASE 10 U/L (15-37); BILIRUBIN,TOTAL 0.2 mg/dL (0.2-1.0); CALCIUM, SERUM 7.7 mg/dL (8.5-10.1); CARBON DIOXIDE 27 mmol/L (21-32); CHLORIDE 104 mmol/L (98-107); CREATININE 1.2 mg/dL (0.6-1.3); GLUCOSE 71 mg/dL (74-106); MAGNESIUM 3.3 mg/dL (1.8-2.4); PHOSPHORUS 3.4 mg/dL (2.5-4.9); SODIUM SERUM 137 mmol/L (136-145); TOTAL PROTEIN, SERUM 4.9 g/dL (6.4-8.2); UREA NITROGEN, BLOOD 18 mg/dL (7-18)
[2019-07-31] MEDS ORDERED: LEVOTHYROXINE SODIUM 75 MCG TABLET PO SCH (07:30)
[2019-07-31] MEDS ORDERED: PANTOPRAZOLE 40 MG TABLET.DR PO SCH (07:30)
[2019-07-31 07:32] LABS: BASOPHILS # (AUTO) 0.1 /CMM (0.0-0.2); BASOPHILS % (AUTO) 0.8 % (0.0-2.0); EOSINOPHILS % (AUTO) 2.3 % (0.0-6.0); HEMATOCRIT 32 % (33-45); HEMOGLOBIN 10.8 g/dL (11.5-14.8); LYMPHOCYTES # (AUTO) 2.4 /CMM (0.8-4.8); LYMPHOCYTES % (AUTO) 35.8 % (20.0-44.0); MEAN CORPUSCULAR HGB CONC 34 g/dl (31.0-36.0); MEAN CORPUSCULAR VOLUME 90 fL (82-100); MONOCYTES # (AUTO) 0.3 /CMM (0.1-1.30); MONOCYTES % (AUTO) 4.7 % (2.0-12.0); NEUTROPHILS # (AUTO) 3.7 /CMM (1.8-8.9); NEUTROPHILS % (AUTO) 56.4 % (43.0-81.0); PLATELET COUNT (AUTO) 210 /CMM (150-450); RED BLOOD CELL COUNT(AUTO) 3.58 MIL/uL (4.0-5.2); WHITE BLOOD COUNT (AUTO) 6.6 K/uL (4.3-11.0)
[2019-07-31 08:00] VITALS: BP 144/59
[2019-07-31] MEDS: VITAMIN B COMP W-C 1 TAB TABLET PO SCH (08:20)
[2019-07-31] MEDS: CHOLECALCIFEROL 1,000 UNIT TABLET (VIT D3) PO SCH (08:21)
[2019-07-31] MEDS: ASCORBIC ACID 500 MG TABLET PO SCH (08:21)
[2019-07-31] MEDS: DOCUSATE SODIUM 250 MG CAPSULE PO SCH (08:21)
[2019-07-31] MEDS: CALCIUM CARBONATE (1250) 500 MG TABLET PO SCH (08:22)
[2019-07-31] MEDS: CARBIDOPA/LEVODOPA 25/100 MG 1 UDTAB PO SCH ×2 (08:22→13:21)
[2019-07-31] MEDS: ENOXAPARIN SODIUM 30 MG/0.3 ML DISP.SYRIN SQ SCH (08:23)
[2019-07-31] MEDS ORDERED: CITALOPRAM HYDROBROMIDE 20 MG TABLET PO SCH (09:00)
[2019-08-01] MEDS ORDERED: DOCUSATE SODIUM 100 MG CAPSULE PO SCH (09:00)
== END 2019-07-31 15:40 | disposition home or self-care (01) | DRG 689 ==
LOC: ER 11:04 → MEDSG1 12:58
PROVIDERS: ADMIT Nurse Practitioner Acute Care; ATTEND Nurse Practitioner Acute Care
DX: N39.0 Urinary tract infection, site not specified (principal); G93.41 Metabolic encephalopathy; E44.0 Moderate protein-calorie malnutrition; I50.32 Chronic diastolic (congestive) heart failure; D68.59 Other primary thrombophilia; M48.56XA Collapsed vertebra, not elsewhere classified, lumbar region, initial encounter for fracture; E78.5 Hyperlipidemia, unspecified; E03.9 Hypothyroidism, unspecified; I11.0 Hypertensive heart disease with heart failure; G20 Parkinson's disease; E83.41 Hypermagnesemia; F02.80 Dementia in other diseases classified elsewhere, unspecified severity, without behavioral disturbance, psychotic disturbance, mood disturbance, and anxiety; K59.00 Constipation, unspecified; K21.9 Gastro-esophageal reflux disease without esophagitis; I25.10 Atherosclerotic heart disease of native coronary artery without angina pectoris; Z81.8 Family history of other mental and behavioral disorders; Z90.710 Acquired absence of both cervix and uterus; Z88.0 Allergy status to penicillin; Z79.899 Other long term (current) drug therapy; F32.9 Major depressive disorder, single episode, unspecified; D63.8 Anemia in other chronic diseases classified elsewhere; B96.89 Other specified bacterial agents as the cause of diseases classified elsewhere; K62.3 Rectal prolapse; D73.4 Cyst of spleen; M43.16 Spondylolisthesis, lumbar region; K76.89 Other specified diseases of liver; N28.1 Cyst of kidney, acquired
CPT/HCPCS: 36415; 70450-TC; 71045-TC; 80048-TC; 80053-TC; 80061-TC; 80076-TC; 81000-TC; 82140-TC; 83605-TC; 83735-TC; 84100-TC; 84443-TC; 84484-TC; 85025-TC; 87040-TC; 87081-TC; 87086-TC; 87186-TC; 97110-TC; 97112-TC; 97530-TC; G0378; J0696; J1650; J7030; J7060; Q9967

== ENCOUNTER 2019-09-19 11:48 | Inpatient (IN) | payer MEDICARE, BC ==
[~2019-09-19] VITALS: Ht 165.1 cm; Wt 70.8 kg
[~2019-09-19 11:48] MED LIST changes: -AMLO5TAB9 PO; -ASPI-1152 PO; -B CO1TAB6 PO; +CALC500T52 PO; -CEPH-569 PO; +FURO-145 PO; -LACT10SO PO; -LEVO137T2 PO; +LEVO150T8 PO; -LEVO500T90 PO; +LOSA1TAB39 PO; -MULT1TAB73 PO; -POLY17PO4 PO; +POTA20TA83 PO; -ROPI0.5T PO; +ROPI6TAB PO; +VITA1TAB56 PO; -[UNRECOGNIZED DRUG - CODE] PO
[2019-09-19] MEDS ORDERED: IV NS 0.9% 1,000 ML BAG IV ONE (12:00)
[2019-09-19 12:15] LABS: BASOPHILS # (AUTO) 0.1 /CMM (0.0-0.2); BASOPHILS % (AUTO) 0.7 % (0.0-2.0); EOSINOPHILS % (AUTO) 0.3 % (0.0-6.0); HEMATOCRIT 36 % (33-45); HEMOGLOBIN 12.1 g/dL (11.5-14.8); LYMPHOCYTES # (AUTO) 1.5 /CMM (0.8-4.8); MEAN CORPUSCULAR HGB CONC 34 g/dl (31.0-36.0); MEAN CORPUSCULAR VOLUME 90 fL (82-100); MONOCYTES # (AUTO) 0.6 /CMM (0.1-1.30); MONOCYTES % (AUTO) 6.2 % (2.0-12.0); NEUTROPHILS % (AUTO) 77.8 % (43.0-81.0); PLATELET COUNT (AUTO) 388 /CMM (150-450); RED BLOOD CELL COUNT(AUTO) 4.01 MIL/uL (4.0-5.2); WHITE BLOOD COUNT (AUTO) 10.3 K/uL (4.3-11.0)
[2019-09-19 12:16] LABS: APPEARANCE,URINE Clear (CLEAR); BILIRUBIN,URINE SMALL (NEGATIVE); BLOOD, URINE Negative Ery/uL (NEGATIVE); COLOR,URINE Yellow (YELLOW); KETONES,URINE 15 (NEGATIVE); LEUKOCYTE ESTERASE ,URINE Trace (NEGATIVE); NITRITE, URINE Negative (NEGATIVE); PROTEIN,URINE 100 mg/dl (NEGATIVE); UGLUCOSE Negative (NEGATIVE)
[2019-09-19 12:26] LABS: CALCIUM, SERUM 9.2 mg/dL (8.5-10.1); CARBON DIOXIDE 29 mmol/L (21-32); CHLORIDE 93 mmol/L (98-107); CREATININE 1.7 mg/dL (0.6-1.3); GLUCOSE 99 mg/dL (74-106); POTASSIUM 4.4 mmol/L (3.5-5.1); SODIUM SERUM 127 mmol/L (136-145); UREA NITROGEN, BLOOD 36 mg/dL (7-18)
[2019-09-19 12:33] LABS: ALANINE AMINOTRANSFERASE 8 U/L (12-78); ALBUMIN 2.6 g/dL (3.4-5.0); ALKALINE PHOSPHATASE 86 U/L (46-116); ASPARTATE AMINOTRANSFERASE 37 U/L (15-37); BILIRUBIN,DIRECT 0.1 mg/dL (0.0-0.2); BILIRUBIN,TOTAL 0.7 mg/dL (0.2-1.0)
[2019-09-19 12:35] LABS: BACTERIA,URINE Few /HPF (None Seen); SQUAMOUS EPITHELIAL CELL,UR Few /HPF (None Seen)
[2019-09-19] MEDS ORDERED: CEFTRIAXONE 1GM BAG (ER ONLY) 50 ML IV ONE (12:58)
[2019-09-19] MEDS ORDERED: CEFTRIAXONE 1GM BAG (ER ONLY) 1 GM/50 ML PIGGYBACK IV ONE (13:00)
[2019-09-19] MEDS ORDERED: FUROSEMIDE 20 MG TABLET PO PRN (15:00)
[2019-09-19] MEDS ORDERED: Z GUARD REMEDY 2 OZ OINT TP PRN (15:00)
[2019-09-19] MEDS ORDERED: ACETAMINOPHEN 325 MG TABLET PO PRN (15:00)
[2019-09-19] MEDS ORDERED: MAG HYDROX/AL HYDROX/SIMETH 30 ML UDC PO PRN (15:00)
[2019-09-19] MEDS ORDERED: MAGNESIUM HYDROXIDE 30 ML UDC PO PRN (15:00)
[2019-09-19 15:30] VITALS: BP 130/72
[2019-09-19 16:00] VITALS: BP 130/72
[2019-09-19] MEDS: CARBIDOPA/LEVODOPA 25/100 MG 1 UDTAB PO SCH (16:58)
[2019-09-19] MEDS: GABAPENTIN 300 MG CAPSULE PO SCH (17:00)
[2019-09-19] MEDS: IV NS 0.9% 1,000 ML IV PRN (17:00)
[2019-09-19] MEDS: QUETIAPINE FUMARATE 25 MG TABLET PO SCH (17:01)
[2019-09-19 20:24] VITALS: BP 136/89
[2019-09-20 00:06] VITALS: BP 131/78
[2019-09-20 03:52] VITALS: BP 139/75
[2019-09-20 07:11] LABS: BASOPHILS % (AUTO) 0.1 % (0.0-2.0); EOSINOPHILS % (AUTO) 0.1 % (0.0-6.0); HEMATOCRIT 32 % (33-45); LYMPHOCYTES # (AUTO) 1.2 /CMM (0.8-4.8); LYMPHOCYTES % (AUTO) 12.7 % (20.0-44.0); MEAN CORPUSCULAR HGB CONC 34 g/dl (31.0-36.0); MEAN CORPUSCULAR VOLUME 88 fL (82-100); MONOCYTES # (AUTO) 0.4 /CMM (0.1-1.30); MONOCYTES % (AUTO) 4.7 % (2.0-12.0); NEUTROPHILS # (AUTO) 7.6 /CMM (1.8-8.9); NEUTROPHILS % (AUTO) 82.4 % (43.0-81.0); PLATELET COUNT (AUTO) 340 /CMM (150-450); RED BLOOD CELL COUNT(AUTO) 3.68 MIL/uL (4.0-5.2); WHITE BLOOD COUNT (AUTO) 9.2 K/uL (4.3-11.0)
[2019-09-20] MEDS ORDERED: PANTOPRAZOLE 40 MG TABLET.DR PO SCH (07:30)
[2019-09-20] MEDS: LEVOTHYROXINE SODIUM 75 MCG TABLET PO SCH (07:33)
[2019-09-20] MEDS: PANTOPRAZOLE 40 MG TABLET.DR PO SCH (07:33)
[2019-09-20 07:34] LABS: CALCIUM, SERUM 8.6 mg/dL (8.5-10.1); CARBON DIOXIDE 26 mmol/L (21-32); CHLORIDE 95 mmol/L (98-107); CREATININE 1.9 mg/dL (0.6-1.3); GLUCOSE 126 mg/dL (74-106); PHOSPHORUS 6.3 mg/dL (2.5-4.9); POTASSIUM 3.9 mmol/L (3.5-5.1); SODIUM SERUM 128 mmol/L (136-145); UREA NITROGEN, BLOOD 51 mg/dL (7-18)
[2019-09-20 07:38] LABS: CHOLESTEROL 106 mg/dL (<200); HDL CHOLESTEROL 43 mg/dL (40-60); LDL 51 mg/dL (0-99); MAGNESIUM 5.5 mg/dL (1.8-2.4); THYROID STIMULATING HORMONE 2.646 uIU/mL (0.358-3.74); TRIGLYCERIDES 72 mg/dL (30-150)
[2019-09-20 08:00] VITALS: BP 81/49
[2019-09-20] MEDS: LOSARTAN/HCTZ 50-12.5MG/ 1 EA TABLET PO SCH (08:18)
[2019-09-20] MEDS: ASCORBIC ACID 500 MG TABLET PO SCH (08:19)
[2019-09-20] MEDS: VITAMIN B COMP W-C 1 TAB TABLET PO SCH (08:19)
[2019-09-20] MEDS: CHOLECALCIFEROL 1,000 UNIT TABLET (VIT D3) PO SCH (08:19)
[2019-09-20] MEDS: CARBIDOPA/LEVODOPA 25/100 MG 1 UDTAB PO SCH ×3 (08:19→16:24)
[2019-09-20] MEDS: CALCIUM CARBONATE (1250) 500 MG TABLET PO SCH (08:19)
[2019-09-20] MEDS ORDERED: Medication Not On Formulary EA (Fish Oil/Dha/Epa (Fish Oil 1,200 Mg Fish Oil) 1 EACH) PO SCH (09:00)
[2019-09-20] MEDS: IV NS 0.9% 1,000 ML IV PRN (09:05)
[2019-09-20] MEDS: HYDROGEL DRESSING 90 GM TUBE TP SCH (09:06)
[2019-09-20] MEDS: CEFTRIAXONE 1 G in IV D5W 50 ML IV SCH (11:10)
[2019-09-20 16:00] VITALS: BP 70/43
[2019-09-20] MEDS: QUETIAPINE FUMARATE 25 MG TABLET PO SCH (17:03)
[2019-09-20] MEDS: REQUIP 6 MG PO SCH (17:03)
[2019-09-20] MEDS: GABAPENTIN 300 MG CAPSULE PO SCH (17:03)
[2019-09-20] MEDS ORDERED: FEE PK DOSING 1 MIN EA MC ONE (19:35)
[2019-09-20 20:00] VITALS: BP 90/52
[2019-09-20] MEDS ORDERED: VANCOMYCIN 0.75 GM in IV D5W 250 ML IV SCH (20:00)
[2019-09-21] MEDS: IV NS 0.9% 1,000 ML IV PRN (05:26)
[2019-09-21 06:37] LABS: BASOPHILS % (AUTO) 0.2 % (0.0-2.0); EOSINOPHILS % (AUTO) 2.5 % (0.0-6.0); HEMATOCRIT 30 % (33-45); HEMOGLOBIN 10.3 g/dL (11.5-14.8); LYMPHOCYTES # (AUTO) 1.6 /CMM (0.8-4.8); LYMPHOCYTES % (AUTO) 16.3 % (20.0-44.0); MEAN CORPUSCULAR HGB CONC 34 g/dl (31.0-36.0); MEAN CORPUSCULAR VOLUME 90 fL (82-100); MONOCYTES # (AUTO) 0.3 /CMM (0.1-1.30); MONOCYTES % (AUTO) 3.3 % (2.0-12.0); NEUTROPHILS # (AUTO) 7.5 /CMM (1.8-8.9); NEUTROPHILS % (AUTO) 77.7 % (43.0-81.0); PLATELET COUNT (AUTO) 286 /CMM (150-450); RED BLOOD CELL COUNT(AUTO) 3.36 MIL/uL (4.0-5.2); WHITE BLOOD COUNT (AUTO) 9.7 K/uL (4.3-11.0)
[2019-09-21] MEDS: ASCORBIC ACID 500 MG TABLET PO SCH (08:08)
[2019-09-21] MEDS: PANTOPRAZOLE 40 MG TABLET.DR PO SCH (08:08)
[2019-09-21] MEDS: CHOLECALCIFEROL 1,000 UNIT TABLET (VIT D3) PO SCH (08:08)
[2019-09-21] MEDS: CARBIDOPA/LEVODOPA 25/100 MG 1 UDTAB PO SCH ×3 (08:08→17:14)
[2019-09-21] MEDS: CALCIUM CARBONATE (1250) 500 MG TABLET PO SCH (08:08)
[2019-09-21] MEDS: LEVOTHYROXINE SODIUM 75 MCG TABLET PO SCH (08:08)
[2019-09-21] MEDS: VITAMIN B COMP W-C 1 TAB TABLET PO SCH (08:08)
[2019-09-21] MEDS: HYDROGEL DRESSING 90 GM TUBE TP SCH (08:09)
[2019-09-21 08:47] VITALS: BP 129/60
[2019-09-21 08:59] LABS: CALCIUM, SERUM 8.4 mg/dL (8.5-10.1); CARBON DIOXIDE 20 mmol/L (21-32); CHLORIDE 99 mmol/L (98-107); CREATININE 1.7 mg/dL (0.6-1.3); GLUCOSE 85 mg/dL (74-106); PHOSPHORUS 3.9 mg/dL (2.5-4.9); POTASSIUM 4.2 mmol/L (3.5-5.1); SODIUM SERUM 131 mmol/L (136-145); UREA NITROGEN, BLOOD 52 mg/dL (7-18)
[2019-09-21] MEDS: LOSARTAN/HCTZ 50-12.5MG/ 1 EA TABLET PO SCH (09:00)
[2019-09-21 09:04] LABS: MAGNESIUM 4.2 mg/dL (1.8-2.4)
[2019-09-21] MEDS: CEFTRIAXONE 1 G in IV D5W 50 ML IV SCH (12:27)
[2019-09-21] MEDS ORDERED: SILVER NITRATE APPLICATOR 1 EA BOX TP ONE (12:30)
[2019-09-21 16:12] VITALS: BP 132/69
[2019-09-21] MEDS: REQUIP 6 MG PO SCH (17:14)
[2019-09-21] MEDS: QUETIAPINE FUMARATE 25 MG TABLET PO SCH (17:14)
[2019-09-21] MEDS: GABAPENTIN 300 MG CAPSULE PO SCH (17:14)
[2019-09-21 18:22] LABS: APPEARANCE,URINE CLEAR (CLEAR); BILIRUBIN,URINE NEGATIVE (NEGATIVE); BLOOD, URINE NEGATIVE Ery/uL (NEGATIVE); COLOR,URINE YELLOW (YELLOW); KETONES,URINE NEGATIVE (NEGATIVE); LEUKOCYTE ESTERASE ,URINE NEGATIVE (NEGATIVE); NITRITE, URINE NEGATIVE (NEGATIVE); PROTEIN,URINE NEGATIVE (NEGATIVE); UGLUCOSE NEGATIVE (NEGATIVE); UROBILINOGEN,URINE 0.2 EU/dL (0.2)
[2019-09-21 20:00] VITALS: BP 109/55
[2019-09-21 20:09] VITALS: BP 109/55
[2019-09-22] MEDS: IV NS 0.9% 1,000 ML IV PRN ×2 (04:38→18:55)
[2019-09-22 06:35] LABS: BASOPHILS % (AUTO) 0.4 % (0.0-2.0); EOSINOPHILS % (AUTO) 2.6 % (0.0-6.0); HEMATOCRIT 28 % (33-45); HEMOGLOBIN 9.6 g/dL (11.5-14.8); LYMPHOCYTES # (AUTO) 1.5 /CMM (0.8-4.8); LYMPHOCYTES % (AUTO) 21.6 % (20.0-44.0); MEAN CORPUSCULAR HGB CONC 34 g/dl (31.0-36.0); MEAN CORPUSCULAR VOLUME 90 fL (82-100); MONOCYTES # (AUTO) 0.2 /CMM (0.1-1.30); MONOCYTES % (AUTO) 3.4 % (2.0-12.0); PLATELET COUNT (AUTO) 266 /CMM (150-450); RED BLOOD CELL COUNT(AUTO) 3.14 MIL/uL (4.0-5.2); WHITE BLOOD COUNT (AUTO) 6.9 K/uL (4.3-11.0)
[2019-09-22 06:56] LABS: CALCIUM, SERUM 8.1 mg/dL (8.5-10.1); CREATININE 1.1 mg/dL (0.6-1.3); MAGNESIUM 2.9 mg/dL (1.8-2.4); PHOSPHORUS 2.7 mg/dL (2.5-4.9)
[2019-09-22 08:00] VITALS: BP 130/89
[2019-09-22] MEDS: LEVOTHYROXINE SODIUM 75 MCG TABLET PO SCH ×2 (08:24→09:04)
[2019-09-22] MEDS: CARBIDOPA/LEVODOPA 25/100 MG 1 UDTAB PO SCH ×3 (08:24→17:02)
[2019-09-22] MEDS: ASCORBIC ACID 500 MG TABLET PO SCH ×2 (08:24→09:04)
[2019-09-22] MEDS: PANTOPRAZOLE 40 MG TABLET.DR PO SCH ×2 (08:24→09:04)
[2019-09-22] MEDS: CHOLECALCIFEROL 1,000 UNIT TABLET (VIT D3) PO SCH ×2 (08:24→09:04)
[2019-09-22] MEDS: VITAMIN B COMP W-C 1 TAB TABLET PO SCH ×2 (08:24→09:04)
[2019-09-22] MEDS: CALCIUM CARBONATE (1250) 500 MG TABLET PO SCH ×2 (08:24→09:04)
[2019-09-22] MEDS: LOSARTAN/HCTZ 50-12.5MG/ 1 EA TABLET PO SCH (09:47)
[2019-09-22] MEDS: HYDROGEL DRESSING 90 GM TUBE TP SCH (09:51)
[2019-09-22] MEDS: CEFTRIAXONE 1 G in IV D5W 50 ML IV SCH (13:05)
[2019-09-22 16:00] VITALS: BP 148/77
[2019-09-22 16:32] LABS: APPEARANCE,URINE SL CLOUDY (CLEAR); BILIRUBIN,URINE NEGATIVE (NEGATIVE); BLOOD, URINE NEGATIVE Ery/uL (NEGATIVE); COLOR,URINE YELLOW (YELLOW); KETONES,URINE NEGATIVE (NEGATIVE); LEUKOCYTE ESTERASE ,URINE MODERATE (NEGATIVE); NITRITE, URINE POSITIVE (NEGATIVE); PROTEIN,URINE NEGATIVE (NEGATIVE); UGLUCOSE NEGATIVE (NEGATIVE); UROBILINOGEN,URINE 0.2 EU/dL (0.2)
[2019-09-22 16:38] LABS: BACTERIA,URINE 1+ /HPF (None Seen); RBC,URINE 0-2 /HPF (0-2); SQUAMOUS EPITHELIAL CELL,UR Few /HPF (None Seen); WBC,URINE TOO NUMEROUS TO COUN /HPF (0-3)
[2019-09-22 16:39] LABS: YEAST,URINE Few /HPF (None Seen)
[2019-09-22 17:13] LABS: EOSINOPHIL,URINE None Seen
[2019-09-22] MEDS: ENSURE ENLIVE 237 ML LIQUID (VANILLA) PO SCH (17:18)
[2019-09-22] MEDS: GABAPENTIN 300 MG CAPSULE PO SCH (18:09)
[2019-09-22] MEDS: REQUIP 6 MG PO SCH (18:09)
[2019-09-22] MEDS: QUETIAPINE FUMARATE 25 MG TABLET PO SCH (18:10)
[2019-09-22 20:00] VITALS: BP 111/61
[2019-09-22] MEDS: CEFEPIME 1 GM in IV D5W 50 ML IV SCH (20:39)
[2019-09-23 00:52] LABS: CREATININE, URINE 32.1 MG/DL (30.0-125.0); URINE TOTAL PROTEIN 10.2 mg/dL (0-11.9)
[2019-09-23] MEDS: IV NS 0.9% 1,000 ML IV PRN ×2 (05:04→18:20)
[2019-09-23 06:56] LABS: BASOPHILS % (AUTO) 0.3 % (0.0-2.0); EOSINOPHILS % (AUTO) 1.6 % (0.0-6.0); HEMATOCRIT 31 % (33-45); HEMOGLOBIN 10.6 g/dL (11.5-14.8); LYMPHOCYTES # (AUTO) 1.7 /CMM (0.8-4.8); MEAN CORPUSCULAR HGB CONC 34 g/dl (31.0-36.0); MEAN CORPUSCULAR VOLUME 90 fL (82-100); MONOCYTES # (AUTO) 0.5 /CMM (0.1-1.30); MONOCYTES % (AUTO) 5.7 % (2.0-12.0); NEUTROPHILS # (AUTO) 6.4 /CMM (1.8-8.9); NEUTROPHILS % (AUTO) 73.4 % (43.0-81.0); PLATELET COUNT (AUTO) 247 /CMM (150-450); RED BLOOD CELL COUNT(AUTO) 3.45 MIL/uL (4.0-5.2); WHITE BLOOD COUNT (AUTO) 8.8 K/uL (4.3-11.0)
[2019-09-23 07:20] LABS: CALCIUM, SERUM 8.4 mg/dL (8.5-10.1); CREATININE 0.9 mg/dL (0.6-1.3); MAGNESIUM 2.2 mg/dL (1.8-2.4); PHOSPHORUS 1.9 mg/dL (2.5-4.9); POTASSIUM 4.1 mmol/L (3.5-5.1)
[2019-09-23 08:00] VITALS: BP 160/77
[2019-09-23] MEDS: CEFEPIME 1 GM in IV D5W 50 ML IV SCH ×2 (08:54→22:14)
[2019-09-23] MEDS: CHOLECALCIFEROL 1,000 UNIT TABLET (VIT D3) PO SCH (08:55)
[2019-09-23] MEDS: CALCIUM CARBONATE (1250) 500 MG TABLET PO SCH (08:55)
[2019-09-23] MEDS: LOSARTAN/HCTZ 50-12.5MG/ 1 EA TABLET PO SCH (08:55)
[2019-09-23] MEDS: ASCORBIC ACID 500 MG TABLET PO SCH (08:56)
[2019-09-23] MEDS: VITAMIN B COMP W-C 1 TAB TABLET PO SCH (08:56)
[2019-09-23] MEDS: CARBIDOPA/LEVODOPA 25/100 MG 1 UDTAB PO SCH ×3 (08:56→17:20)
[2019-09-23] MEDS: ENSURE ENLIVE 237 ML LIQUID (VANILLA) PO SCH ×2 (08:57→17:52)
[2019-09-23] MEDS: HYDROGEL DRESSING 90 GM TUBE TP SCH (09:28)
[2019-09-23] MEDS ORDERED: K PHOS NEUTRAL 250 MG TABLET PO ONE (10:30)
[2019-09-23 16:00] VITALS: BP 152/86
[2019-09-23] MEDS: REQUIP 6 MG PO SCH (17:20)
[2019-09-23] MEDS: GABAPENTIN 300 MG CAPSULE PO SCH (17:20)
[2019-09-23] MEDS: QUETIAPINE FUMARATE 25 MG TABLET PO SCH (17:20)
[2019-09-23 20:00] VITALS: BP 113/59
[2019-09-24 07:11] LABS: CALCIUM, SERUM 8.8 mg/dL (8.5-10.1); CREATININE 0.8 mg/dL (0.6-1.3); PHOSPHORUS 2.3 mg/dL (2.5-4.9); POTASSIUM 4.3 mmol/L (3.5-5.1)
[2019-09-24 08:00] VITALS: BP 180/100
[2019-09-24] MEDS: VITAMIN B COMP W-C 1 TAB TABLET PO SCH (08:03)
[2019-09-24] MEDS: LEVOTHYROXINE SODIUM 75 MCG TABLET PO SCH (08:03)
[2019-09-24] MEDS: CARBIDOPA/LEVODOPA 25/100 MG 1 UDTAB PO SCH ×3 (08:03→17:04)
[2019-09-24] MEDS: CALCIUM CARBONATE (1250) 500 MG TABLET PO SCH (08:03)
[2019-09-24] MEDS: CHOLECALCIFEROL 1,000 UNIT TABLET (VIT D3) PO SCH (08:03)
[2019-09-24] MEDS: PANTOPRAZOLE 40 MG TABLET.DR PO SCH (08:03)
[2019-09-24] MEDS: ASCORBIC ACID 500 MG TABLET PO SCH (08:03)
[2019-09-24] MEDS: ENSURE ENLIVE 237 ML LIQUID (VANILLA) PO SCH ×2 (08:04→17:05)
[2019-09-24] MEDS: CEFEPIME 1 GM in IV D5W 50 ML IV SCH ×2 (08:04→21:00)
[2019-09-24] MEDS: HYDROGEL DRESSING 90 GM TUBE TP SCH (08:04)
[2019-09-24] MEDS: LOSARTAN/HCTZ 50-12.5MG/ 1 EA TABLET PO SCH (08:04)
[2019-09-24 09:56] VITALS: BP 160/100
[2019-09-24] MEDS ORDERED: K PHOS NEUTRAL 250 MG TABLET PO ONE (12:30)
[2019-09-24 16:00] VITALS: BP 156/79
[2019-09-24] MEDS: GABAPENTIN 300 MG CAPSULE PO SCH (17:04)
[2019-09-24] MEDS: QUETIAPINE FUMARATE 25 MG TABLET PO SCH (17:05)
[2019-09-24] MEDS: REQUIP 6 MG PO SCH (17:05)
[2019-09-24] MEDS: IV NS 0.9% 1,000 ML IV PRN (18:08)
[2019-09-24 20:00] VITALS: BP 106/58
[2019-09-24 20:04] VITALS: BP 106/58
[2019-09-24] MEDS ORDERED: CEFEPIME 1 GM in IV D5W 50 ML IV SCH (21:00)
[2019-09-25 06:47] LABS: BASOPHILS % (AUTO) 0.5 % (0.0-2.0); EOSINOPHILS % (AUTO) 2.4 % (0.0-6.0); HEMATOCRIT 28 % (33-45); HEMOGLOBIN 9.7 g/dL (11.5-14.8); LYMPHOCYTES # (AUTO) 1.9 /CMM (0.8-4.8); MEAN CORPUSCULAR HGB CONC 34 g/dl (31.0-36.0); MEAN CORPUSCULAR VOLUME 88 fL (82-100); MONOCYTES # (AUTO) 0.5 /CMM (0.1-1.30); NEUTROPHILS # (AUTO) 5.1 /CMM (1.8-8.9); NEUTROPHILS % (AUTO) 66.1 % (43.0-81.0); PLATELET COUNT (AUTO) 261 /CMM (150-450); RED BLOOD CELL COUNT(AUTO) 3.22 MIL/uL (4.0-5.2); WHITE BLOOD COUNT (AUTO) 7.8 K/uL (4.3-11.0)
[2019-09-25 07:00] LABS: CALCIUM, SERUM 8.5 mg/dL (8.5-10.1); CREATININE 0.9 mg/dL (0.6-1.3); MAGNESIUM 1.5 mg/dL (1.8-2.4); PHOSPHORUS 2.6 mg/dL (2.5-4.9); POTASSIUM 3.4 mmol/L (3.5-5.1)
[2019-09-25 08:00] VITALS: BP 147/73
[2019-09-25] MEDS: VITAMIN B COMP W-C 1 TAB TABLET PO SCH (08:27)
[2019-09-25] MEDS: PANTOPRAZOLE 40 MG TABLET.DR PO SCH (08:27)
[2019-09-25] MEDS: LEVOTHYROXINE SODIUM 75 MCG TABLET PO SCH (08:27)
[2019-09-25] MEDS: CHOLECALCIFEROL 1,000 UNIT TABLET (VIT D3) PO SCH (08:27)
[2019-09-25] MEDS: CARBIDOPA/LEVODOPA 25/100 MG 1 UDTAB PO SCH ×3 (08:28→16:08)
[2019-09-25] MEDS: ENSURE ENLIVE 237 ML LIQUID (VANILLA) PO SCH ×2 (08:28→16:08)
[2019-09-25] MEDS: ASCORBIC ACID 500 MG TABLET PO SCH (08:28)
[2019-09-25] MEDS: CALCIUM CARBONATE (1250) 500 MG TABLET PO SCH (08:28)
[2019-09-25 08:29] VITALS: BP 147/73
[2019-09-25] MEDS: LOSARTAN/HCTZ 50-12.5MG/ 1 EA TABLET PO SCH (08:29)
[2019-09-25] MEDS: HYDROGEL DRESSING 90 GM TUBE TP SCH (08:29)
[2019-09-25] MEDS: CEFEPIME 1 GM in IV D5W 50 ML IV SCH (08:47)
[2019-09-25] MEDS ORDERED: POTASSIUM CHLORIDE 20 MEQ TAB.PRT.SR PO SCH (11:00)
[2019-09-25] MEDS: Magnesium 1GM/D5W 100ML PREMIX 100 ML IV SCH ×2 (11:08→12:22)
[2019-09-25] MEDS: GABAPENTIN 300 MG CAPSULE PO SCH (17:05)
[2019-09-25] MEDS: REQUIP 6 MG PO SCH (17:05)
[2019-09-25] MEDS: QUETIAPINE FUMARATE 25 MG TABLET PO SCH (17:05)
== END 2019-09-25 18:16 | disposition home or self-care (01) | DRG 853 ==
LOC: ER 11:50 → TELE 14:32 → MED 18:42 → TELE 19:36 → MED 09-20 10:29
PROVIDERS: ADMIT Registered Nurse; ATTEND Registered Nurse
PROC: 0JB70ZZ Excision of Back Subcutaneous Tissue and Fascia, Open Approach (ICD-10-PCS; principal; 2019-09-21)
DX: A41.9 Sepsis, unspecified organism (principal); L89.153 Pressure ulcer of sacral region, stage 3; G92 Toxic encephalopathy; N17.0 Acute kidney failure with tubular necrosis; K56.7 Ileus, unspecified; E44.0 Moderate protein-calorie malnutrition; N39.0 Urinary tract infection, site not specified; I50.32 Chronic diastolic (congestive) heart failure; E87.1 Hypo-osmolality and hyponatremia; I11.0 Hypertensive heart disease with heart failure; F02.80 Dementia in other diseases classified elsewhere, unspecified severity, without behavioral disturbance, psychotic disturbance, mood disturbance, and anxiety; G20 Parkinson's disease; I25.10 Atherosclerotic heart disease of native coronary artery without angina pectoris; K21.9 Gastro-esophageal reflux disease without esophagitis; E78.5 Hyperlipidemia, unspecified; D63.8 Anemia in other chronic diseases classified elsewhere; E03.9 Hypothyroidism, unspecified; F32.9 Major depressive disorder, single episode, unspecified; Z90.710 Acquired absence of both cervix and uterus; Z88.0 Allergy status to penicillin; Z87.440 Personal history of urinary (tract) infections; E83.41 Hypermagnesemia; Z96.653 Presence of artificial knee joint, bilateral; Z96.649 Presence of unspecified artificial hip joint; Z79.899 Other long term (current) drug therapy; Z74.09 Other reduced mobility; E66.9 Obesity, unspecified; Z68.26 Body mass index [BMI] 26.0-26.9, adult; B96.5 Pseudomonas (aeruginosa) (mallei) (pseudomallei) as the cause of diseases classified elsewhere
CPT/HCPCS: 36415; 71045-TC; 74018; 80048-TC; 80061-TC; 80076-TC; 81000-TC; 82570-TC; 83605-TC; 83735-TC; 84100-TC; 84155-TC; 84300-TC; 84443-TC; 84484-TC; 85025-TC; 85730-TC; 87040-TC; 87081-TC; 87086-TC; 87186-TC; 93307-TC; 94799-TC; 97112-TC; 97530-TC; A6248; A6253; A6403; G0378; J0692; J0696; J3370; J3475; J7030; J7060

== ENCOUNTER 2020-05-17 17:53 | Inpatient (IN) | payer MEDICARE, BC ==
[~2020-05-17] VITALS: Ht 152.4 cm; Wt 54.4 kg
--- NOTE | 2020-05-17 00:30 | NUR ---
RECIEVED FROM THE ER PT WILL OPEN EYES WHEN NAME SPOKEN. NUMEROUS SKIN ULCERS PHOTOS TAKEN AND PLACED IN TO THE CHART. CLEANED AND DRIED AND DRESSED THEM. MAX ASSIST NEED TO GET CLEANED AND POSITIONED.
[~2020-05-17 17:53] MED LIST changes: +ASCO-352 PO; -ASCO500T9 PO; -OMEP20CA11 PO; +OMEP20CA15 PO; -POTA20TA83 PO
[2020-05-17] MEDS ORDERED: LINA145C MT (18:07)
[2020-05-17] MEDS ORDERED: IV NS 0.9% 1,000 ML BAG IV ONE (18:30)
[2020-05-17] MEDS ORDERED: IV NS 0.9% 250 ML IV ONE (18:46)
[2020-05-17] MEDS ORDERED: IOHEXOL-300 100 ML VIAL IV ONE (18:46)
[2020-05-17 18:48] LABS: APPEARANCE,URINE Cloudy (CLEAR); BILIRUBIN,URINE Negative (NEGATIVE); BLOOD, URINE Small Ery/uL (NEGATIVE); COLOR,URINE Yellow (YELLOW); KETONES,URINE Negative (NEGATIVE); LEUKOCYTE ESTERASE ,URINE Small (NEGATIVE); NITRITE, URINE Positive (NEGATIVE); PROTEIN,URINE 100 mg/dl (NEGATIVE); UGLUCOSE Negative (NEGATIVE); UROBILINOGEN,URINE 0.2 EU/dL (0.2)
--- NOTE | 2020-05-17 18:54 | NUR ---
patient cherie, from home, off hospice per caregiver today, altered than usual. On 02 @ 2lpm via NC. Leblanc cath in placed attached to drainage bag. Connected to the monitor and pulse ox. kept comfortable, will continue to monitor accordingly.
[2020-05-17 18:56] LABS: BASOPHILS % (AUTO) 0.5 % (0.0-2.0); EOSINOPHILS % (AUTO) 1.1 % (0.0-6.0); LYMPHOCYTES # (AUTO) 1.1 /CMM (0.8-4.8); LYMPHOCYTES % (AUTO) 13.1 % (20.0-44.0); MEAN CORPUSCULAR HGB CONC 32 g/dl (31.0-36.0); MEAN CORPUSCULAR VOLUME 76 fL (82-100); MONOCYTES # (AUTO) 0.3 /CMM (0.1-1.30); MONOCYTES % (AUTO) 3.4 % (2.0-12.0); NEUTROPHILS # (AUTO) 7.1 /CMM (1.8-8.9); NEUTROPHILS % (AUTO) 81.9 % (43.0-81.0); PLATELET COUNT (AUTO) 372 /CMM (150-450); RED BLOOD CELL COUNT(AUTO) 2.44 MIL/uL (4.0-5.2); WHITE BLOOD COUNT (AUTO) 8.7 K/uL (4.3-11.0)
[2020-05-17 18:59] LABS: HEMATOCRIT 19 % (33-45); HEMOGLOBIN 5.9 g/dL (11.5-14.8)
[2020-05-17 19:00] LABS: BACTERIA,URINE 3+ /HPF (None Seen); SQUAMOUS EPITHELIAL CELL,UR Few /HPF (None Seen)
[2020-05-17 19:08] LABS: CALCIUM, SERUM 9.2 mg/dL (8.5-10.1); CARBON DIOXIDE 24 mmol/L (21-32); CHLORIDE 115 mmol/L (98-107); CREATININE 0.9 mg/dL (0.6-1.3); GLUCOSE 81 mg/dL (74-106); POTASSIUM 3.9 mmol/L (3.5-5.1); SODIUM SERUM 147 mmol/L (136-145); UREA NITROGEN, BLOOD 26 mg/dL (7-18)
--- NOTE | 2020-05-17 19:18 | NUR ---
WATER TAXI BOAT MATE AT BEDSIDE FOR REPEAT BLOOD DRAW
--- NOTE | 2020-05-17 19:18 | NUR ---
REPORT RECEIVED FROM ROMAN TUCKER FOR PURA
[2020-05-17 19:22] LABS: ACETAMINOPHEN 3 ug/ml (10-30); ALANINE AMINOTRANSFERASE < 6 U/L (12-78); ALBUMIN 1.6 g/dL (3.4-5.0); ALKALINE PHOSPHATASE 77 U/L (46-116); ASPARTATE AMINOTRANSFERASE 12 U/L (15-37); BILIRUBIN,DIRECT 0.1 mg/dL (0.0-0.2); BILIRUBIN,TOTAL 0.3 mg/dL (0.2-1.0); TOTAL PROTEIN, SERUM 5.1 g/dL (6.4-8.2)
[2020-05-17 19:24] LABS: ALCOHOL, BLOOD < 3 mg/dL (0-0); SALICYLATE 1.1 mg/dL (2.8-20.0)
[2020-05-17] MEDS ORDERED: VANCOMYCIN HCL 1.25 GM in IV D5W 260 ML IV ONE (19:30)
--- NOTE | 2020-05-17 19:45 | NUR ---
PT TAKEN TO CT
[2020-05-17 19:46] LABS: SERUM AMMONIA 25 umol/L (11-32)
[2020-05-17 19:59] LABS: THYROID STIMULATING HORMONE 6.904 uIU/mL (0.358-3.74)
--- NOTE | 2020-05-17 20:22 | NUR ---
covid swab collected and sent to lab.
[2020-05-17 20:40] LABS: BAND % (MANUAL) 2 % (0.0-5.0); EOSINOPHILS % (MANUAL) 3 % (0-4); LYMPHOCYTES % (MANUAL) 14 % (16-48); MONOCYTES % (MANUAL) 2 % (0-11.0); NEUTROPHILS % (MANUAL) 79 (42-76)
[2020-05-17] MEDS ORDERED: AZTREONAM 1 G in IV NS 0.9% 100 ML IV ONE (21:00)
--- NOTE | 2020-05-17 21:09 | NUR ---
PT'S SON, SKIP LANGSTON
[2020-05-17] MEDS ORDERED: ONDANSETRON HCL/PF 4 MG/2 ML VIAL IVP PRN (22:00)
[2020-05-17] MEDS ORDERED: MAGNESIUM HYDROXIDE 30 ML UDC PO PRN (22:00)
[2020-05-17] MEDS ORDERED: Z GUARD REMEDY 2 OZ OINT TP PRN (22:00)
[2020-05-17] MEDS ORDERED: ACETAMINOPHEN 325 MG TABLET PO PRN (22:00)
[2020-05-17] MEDS ORDERED: MAG HYDROX/AL HYDROX/SIMETH 30 ML UDC PO PRN (22:00)
--- NOTE | 2020-05-17 23:00 | NUR ---
REPORT GIVEN TO GARRETT FRENCH FOR PURA
[2020-05-17] MEDS ORDERED: MEROPENEM 500 MG in IV NS 0.9% 50 ML IV ONE (23:45)
[2020-05-18] VITALS (7 sets, daily range): BP systolic 112–146; BP diastolic 49–86
[2020-05-18] MEDS: IV 1/2NS 1000 ML 1,000 ML IV PRN ×2 (00:54→19:01)
[2020-05-18] MEDS ORDERED: MEROPENEM 500 MG VIAL IV ONE (01:25)
[2020-05-18] MEDS ORDERED: MEROPENEM 500 MG in IV NS 0.9% 50 ML IV ONE (01:30)
[2020-05-18] MEDS ORDERED: MEROPENEM 500 MG in IV NS 0.9% 50 ML IV SCH (05:00)
--- NOTE | 2020-05-18 06:09 | NUR ---
ENDING NOTES: RECIEIVED LAST NIGHT FROM THE ER FROM HOME. MULTIPLE WOUNDS ON HER BODY PHOTOS TAKEN. WOUNDS CLEANED AND DRESSED. SHE HAS GARBLED SPEECH. ASP PRECAUTIONS KEPT npo ORDERED. AGUILAR CATH 300 ML OUTPUT THIS 12 HOURS. H/H AFTER THE 1 UNIT OF BLOOD 7.0/22.
[2020-05-18 06:50] LABS: BASOPHILS % (AUTO) 0.4 % (0.0-2.0); EOSINOPHILS % (AUTO) 1.7 % (0.0-6.0); HEMATOCRIT 24 % (33-45); HEMOGLOBIN 7.3 g/dL (11.5-14.8); LYMPHOCYTES # (AUTO) 1.2 /CMM (0.8-4.8); LYMPHOCYTES % (AUTO) 10.2 % (20.0-44.0); MEAN CORPUSCULAR HGB CONC 31 g/dl (31.0-36.0); MEAN CORPUSCULAR VOLUME 81 fL (82-100); MONOCYTES # (AUTO) 0.3 /CMM (0.1-1.30); MONOCYTES % (AUTO) 2.3 % (2.0-12.0); NEUTROPHILS # (AUTO) 9.8 /CMM (1.8-8.9); NEUTROPHILS % (AUTO) 85.4 % (43.0-81.0); PLATELET COUNT (AUTO) 395 /CMM (150-450); RED BLOOD CELL COUNT(AUTO) 2.94 MIL/uL (4.0-5.2); WHITE BLOOD COUNT (AUTO) 11.4 K/uL (4.3-11.0)
[2020-05-18 06:55] LABS: THYROID STIMULATING HORMONE 11.518 uIU/mL (0.358-3.74)
[2020-05-18 07:04] LABS: CALCIUM, SERUM 9.3 mg/dL (8.5-10.1); CREATININE 0.8 mg/dL (0.6-1.3); MAGNESIUM 2.3 mg/dL (1.8-2.4); PHOSPHORUS 3.5 mg/dL (2.5-4.9); POTASSIUM 3.5 mmol/L (3.5-5.1)
[2020-05-18] MEDS: LEVOTHYROXINE SODIUM 75 MCG TABLET PO SCH (07:30)
[2020-05-18] MEDS: PANTOPRAZOLE 40 MG TABLET.DR PO SCH (07:30)
[2020-05-18] MEDS ORDERED: FEE PK DOSING 1 MIN EA MC ONE (07:34)
[2020-05-18 07:48] LABS: C-REACTIVE PROTEIN 16.2 mg/dL (0.0-0.9)
--- NOTE | 2020-05-18 08:05 | NUR ---
RN Note: Pt received alert awake oriented to name. On 2 LPM O2 via NC, No breathing distress noted. No S/S of distress/discomfort noted. Safety measures observed. Noted during Turning & repositioning in pain & distress. Will give Pain relief medication prior to skin/wound assessment. IV running as ordered. Maintains Contact/droplet precautions R/O Covid. Continue with plan of care.
[2020-05-18] MEDS: CALCIUM CARBONATE (1250) 500 MG TABLET PO SCH (09:00)
[2020-05-18] MEDS: HYDROCHLOROTHIAZIDE 25 MG TABLET PO SCH (09:00)
[2020-05-18] MEDS: VITAMIN B COMP W-C 1 TAB TABLET PO SCH (09:00)
[2020-05-18] MEDS: CHOLECALCIFEROL 1,000 UNIT TABLET (VIT D3) PO SCH (09:00)
[2020-05-18] MEDS: ASCORBIC ACID 500 MG TABLET PO SCH (09:00)
[2020-05-18] MEDS: CARBIDOPA/LEVODOPA 25/100 MG 1 UDTAB PO SCH ×3 (09:00→17:08)
[2020-05-18] MEDS: LOSARTAN POTASSIUM 50 MG TABLET PO SCH (09:00)
[2020-05-18] MEDS ORDERED: Medication Not On Formulary EA (Fish Oil/Dha/Epa (Fish Oil 1,200 Mg Fish Oil) 1 EACH) PO SCH (09:00)
[2020-05-18] MEDS: CITALOPRAM HYDROBROMIDE 20 MG TABLET PO SCH (09:00)
[2020-05-18] MEDS ORDERED: MEROPENEM 1 G in IV NS 0.9% 100 ML IV ONE (10:00)
--- NOTE | 2020-05-18 11:00 | NUR ---
RN Note: Report given to Zoe TUCKER for continuity of care.
[2020-05-18] MEDS: VANCOMYCIN 500 MG in IV D5W 100 ML IV SCH (12:12)
--- NOTE | 2020-05-18 16:16 | NUR ---
PATIENT COVID NEGATIVE PER LAB,RELAYED TO DR. MARSHALL AWAITS RESPONSE.
[2020-05-18] MEDS: GABAPENTIN 300 MG CAPSULE PO SCH (17:08)
[2020-05-18] MEDS: QUETIAPINE FUMARATE 25 MG TABLET PO SCH (17:08)
[2020-05-18] MEDS ORDERED: ROPINIROLE HCL 6 MG PO SCH (18:00)
--- NOTE | 2020-05-18 18:20 | NUR ---
ASSISTANT BASKETBALL COACH NOTE PT IS A/O TO SELF, AFEBRILE. NON-MONITORED, VSS. ON 2L/MIN VIA NC TOLERATING WELL. COVID NEGATIVE. RESPIRATIONS ARE EVEN AND UNLABORED, NOT IN ANY ACUTE DISTRESS NOTED. BOWEL SOUNDS ARE PRESENT IN ALL 4 QUADRANTS UPON AUSCULTATION. BM X1, STOOL COLLECTED FOR OB. AGUILAR CATH IN PLACE DRAINING YELLOW URINE, TUBING FREE OF KINKS. DRESSING CHANGES DONE. REPOSITIONED Q2H. BEDSIDE ENDORSEMENT GIVEN TO GARRETT BORDEN. PT HAD NO BELONGINGS. TRANSFERRED PT TO 207 IN STABLE CONDITION.
--- NOTE | 2020-05-18 18:35 | NUR ---
MS RN NOTE PATIENT ARRIVED FROM [facility] BY BED. REPORT RECEIVED BY ALYSHA TUCKER. PATIENT IN BED RESTING COMFORTABLY. PATIENT IN NO ACUTE DISTRESS. NO SOB NOTED. PATIENT BREATHING IS EVEN AND UNLABORED. PATIENT ON OXYGEN 2L NC SATURATING >95% SPO2. PATIENT VITAL SIGNS WNL. PATIENT BED ALARM IS ON. SAFETY PRECAUTIONS IN PLACE. PATIENT BED IS LOCKED AND IN LOWEST POSITION. CALL LIGHT WITHIN REACH. WILL ENDORSE TRANSFER AND ALL CARE TO PM SHIFT FOR PURA.
--- NOTE | 2020-05-18 20:00 | NUR ---
patternmaker apprentice metal: received report from chalo wood at 1925. pt in bed, awake, open eyes, mumbles words such as okay, no, sorry, and i love you. pt a/o x1, confused. iv access on left hand g 22 patent and flushing well, infusing with 1/2 ns at 60ml/hr. pt npo for swallow eval in am. skin assessment performed a spt was transferred from abdi/1st floor, covid negative. ble and left elbow offloaded on pillows. safety precautions for fall initiated, call light in reach, will continue monitoring pt.
--- NOTE | 2020-05-18 20:45 | NUR ---
rn notes: missed call from pt's daughter, will try to call back after 15mins. HANNAH-daughter [phone]
--- NOTE | 2020-05-18 21:15 | NUR ---
rn notes: received call from pt's daughter, bam, requesting tro speak with her mother. transferred the call to pt's room, and hold the phone next to pt's ears. pt open eyes and tried mumbling words. pt's daughter very pleased. provided update to pt's daughter and advised to call back tomorrow am at 0900 as md would like to speak with the family regarding. daughter agree and understand.
[2020-05-18] MEDS: MEROPENEM 1 G in IV NS 0.9% 100 ML IV SCH (21:29)
[2020-05-18 21:57] LABS: OCCULT BLOOD STOOL NEGATIVE (NEGATIVE)
--- NOTE | 2020-05-18 23:12 | NUR ---
rn notes/bed bath and wound care: assisted visiting housekeeper in providing bed bath to the pt, also complete linen change provided, wound care done, skin prep applied prior to using paper tape.
[2020-05-19] MEDS: VANCOMYCIN 500 MG in IV D5W 100 ML IV SCH ×2 (00:31→12:06)
--- NOTE | 2020-05-19 06:06 | NUR ---
rn notes/wound culture GS-SACRAL: NOTED order for wound culture gram stain on sacral wound, swab performed, specimen labeled correctly, sent to lab.
[2020-05-19 06:40] LABS: BASOPHILS % (AUTO) 0.5 % (0.0-2.0); EOSINOPHILS % (AUTO) 2.2 % (0.0-6.0); HEMATOCRIT 24 % (33-45); HEMOGLOBIN 7.5 g/dL (11.5-14.8); LYMPHOCYTES # (AUTO) 1.3 /CMM (0.8-4.8); LYMPHOCYTES % (AUTO) 12.2 % (20.0-44.0); MEAN CORPUSCULAR HGB CONC 31 g/dl (31.0-36.0); MEAN CORPUSCULAR VOLUME 79 fL (82-100); MONOCYTES # (AUTO) 0.4 /CMM (0.1-1.30); MONOCYTES % (AUTO) 3.5 % (2.0-12.0); NEUTROPHILS # (AUTO) 8.7 /CMM (1.8-8.9); NEUTROPHILS % (AUTO) 81.6 % (43.0-81.0); PLATELET COUNT (AUTO) 422 /CMM (150-450); RED BLOOD CELL COUNT(AUTO) 3.03 MIL/uL (4.0-5.2); WHITE BLOOD COUNT (AUTO) 10.6 K/uL (4.3-11.0)
--- NOTE | 2020-05-19 06:46 | NUR ---
end of shift report: pt remains on 3l oxygen via nc, respirations even and unlabored,no untoward behavior noted throughout the shift. pt appears to try her best to answer simple questions by mumbling words, somewhat difficult to understand. remains afebrile, with approximately 8hrs of sleep. total of 2 soft greenish black bm moderate in amount. iv access remains patent and flushing well, infusing with 1/2 ns at 60ml/hr, no s/s of iv infiltration noted. remains npo awaiting swallow eval. iv atb administered as scheduled. kept on aspiration precautions. wound care provided, am care provided. PLAN OF CARE: monitoring h/h and any s/s of active bleeding, GI consult, Wound care consult, awaiting kci mattress delivery, cont iv atb for uti and sepsis. vs remains stable, needs attended. ble and bue kept offloaded on pillows. safety precautions for fall remains engaged, call light in reach, will endorse to day rn for continuity of care.
[2020-05-19 06:55] LABS: CALCIUM, SERUM 9.1 mg/dL (8.5-10.1); CREATININE 0.9 mg/dL (0.6-1.3); PHOSPHORUS 3.4 mg/dL (2.5-4.9); POTASSIUM 3.5 mmol/L (3.5-5.1)
[2020-05-19 07:08] LABS: MAGNESIUM 2.1 mg/dL (1.8-2.4)
--- NOTE | 2020-05-19 07:26 | NUR ---
M/S RN OPENING NOTES PT OPEN EYES WHEN CALLED, AROUSABLE THROUGH VERBAL AND TACTILE STIMULATION. RESPIRATION EVEN AND NON LABORED WITH NO ACUTE RESPIRATORY DISTRESS ON O2 AT 3LPM VIA N/C, HOB WITH 2 PILLOWS. ABD SOFT AND NON DISTENDED WITH ACTIVE BOWEL SOUNDS, ON FC WITH YELLOW OUTPUT. SKIN WARM TO TOUCH AND DRY, BLE OFFLOAD. PT HAS NO S/SX OF PAIN AND DISCOMFORT. IV SITE AT RIGHT HAND #20, LEFT HAND #22 RUNNING 1/2 NS AT 60 ML/HR. PT ON NPO WAITIGN FOR ST EVAL. BED IN LOW LOCKED POSITION, SRX2 UP FOR SAFETY, REPOSITION Q2H TOLERATED, NEAR NURSING STATION. WILL CONTINUE TO EVAL CARE.
[2020-05-19] MEDS: LEVOTHYROXINE SODIUM 75 MCG TABLET PO SCH (07:30)
[2020-05-19] MEDS: PANTOPRAZOLE 40 MG TABLET.DR PO SCH (07:30)
--- NOTE | 2020-05-19 07:57 | NUR ---
M/S RN NOTES O2 TAPERED FROM 3LPM TO 2LPM, PT SATING 100%. WILL CONT TO MONITOR
[2020-05-19 08:00] VITALS: BP 134/70
--- NOTE | 2020-05-19 08:10 | NUR ---
M/S RN NOTES 9AM PO DUE MEDS NOT GIVEN DUE TO NPO STATUS ORDERED, HOB ELEVATED FOR ASPIRATION PRECAUTION IN SWALLOWING. WAITING FOR ST EVAL. BP 134/70, HR 74, RR 17, T 97.5, SATING 100%. WILL CONT TO MONITOR
[2020-05-19] MEDS: CITALOPRAM HYDROBROMIDE 20 MG TABLET PO SCH (08:12)
[2020-05-19] MEDS: ASCORBIC ACID 500 MG TABLET PO SCH (08:12)
[2020-05-19] MEDS: CALCIUM CARBONATE (1250) 500 MG TABLET PO SCH (08:12)
[2020-05-19] MEDS: CHOLECALCIFEROL 1,000 UNIT TABLET (VIT D3) PO SCH (08:12)
[2020-05-19] MEDS: HYDROCHLOROTHIAZIDE 25 MG TABLET PO SCH (08:12)
[2020-05-19] MEDS: LOSARTAN POTASSIUM 50 MG TABLET PO SCH (08:12)
[2020-05-19] MEDS: CARBIDOPA/LEVODOPA 25/100 MG 1 UDTAB PO SCH ×3 (08:12→16:47)
[2020-05-19] MEDS: MEROPENEM 1 G in IV NS 0.9% 100 ML IV SCH ×2 (08:12→20:55)
[2020-05-19] MEDS: VITAMIN B COMP W-C 1 TAB TABLET PO SCH (08:12)
--- NOTE | 2020-05-19 10:19 | NUR ---
M/S RN NOTES FAMILY MEMBER SKIP CALLED. FAMILY DECIDED TO CONTINUE DNR STATUS. COORDINATE WITH MARY JANE RAMOS, ADVANCE DIRECTIVE NOT RECEIVED. NOTIFIED SKIP TO RE-SEND FOR CHANGE OF STATUS. FAMILY REQUEST TO BE CALLED BY HOSPITALIST FOR DIRECT CHANGING OF STATUS AND PLACING IN COMFORT MEASURES. INFORM SKIP THAT CONCERN WILL BE COORDINATED WITH THE PROVIDER, JOSIANE LEWIS.
--- NOTE | 2020-05-19 12:07 | NUR ---
M/S RN NOTES PT CONTINUE TO NPO, 1300 PO MEDS NOT GIVEN. HOB CONTINUE TO BE ELEVATED. IV RUNNING ORDERED.
--- NOTE | 2020-05-19 12:51 | NUR ---
M/S RN NOTES LINZESS, AZILECT AND REQUIP XL NO AVAILABLE IN PHARMACY PER MED RECON. TALKED TO SKIP (SON) TO BRING THE MEDICATION FOR CONTINUATION OF ORDER. PER SKIP HE IS NOT COMFORTABLE TO ADMINISTER THE MEDICATION WITH HIS MOM'S CONDITION AND WANTED TO HOLD IT OFF FOR NOW UNTIL SHE GOES HOME, DEPENDING ON PATIENT CASE. PHARMACY SID NOTIFIED. TO NOTIFY TIAGO LEWIS.
--- NOTE | 2020-05-19 13:15 | NUR ---
M/S RN NOTES PT SEEN BY DR. TIAGO LEWIS. REPORT GIVEN ABOUT FAMILY CONCERN. NO NEW ORDERS OBTAIN DURING THE ROUNDS.
--- NOTE | 2020-05-19 13:28 | NUR ---
M/S GARRETT NOTES JESSICA, DIRK AND ODETTE EVERETT DISCONTINUED PER DR. LEWIS. Addendum: 05/19/20 at 1329 by LAZARO STORM RN MEDS NOT ACTIVE. AT MEDICATION RECONCILIATION
[2020-05-19 16:00] VITALS: BP 123/59
--- NOTE | 2020-05-19 16:46 | NUR ---
M/S RN NOTES 1700&1800 PO MEDS NOT GIVEN D/T NPO STATUS. ST EVAL WAITING
[2020-05-19] MEDS: QUETIAPINE FUMARATE 25 MG TABLET PO SCH (17:00)
[2020-05-19] MEDS: GABAPENTIN 300 MG CAPSULE PO SCH (17:00)
--- NOTE | 2020-05-19 17:33 | NUR ---
M/S RN NOTES PAGED DR. LEWIS RE: POLST TO DNR PER FAMILY REQUEST, SKIP. CONTACT NUMBER [phone]. TO CALL PER RESPONSE
--- NOTE | 2020-05-19 18:33 | NUR ---
M/S RN CLOSING NOTES PT REMAINS RESPONSIVE TO VERBAL/TACTILE STIMULI, EYE OPEN WITH MUMBLED SPEECH. NAD, ON O2 AT 2LPM VIA N/S SATING >96%. NO BM TODAY, FC WITH YELLOW OUTPUT TOTAL OF 200 ML TODAY, CATHETER CARE PROVIDED. SKIN WARM TO TOUCH AND DRY, BLE OFFLOAD, REPOSITIONED Q2, WAITING FOR WOUND CONSULT FOR MULTIPLE PRESSURE INJURY, BASIC CLEANSING RENDERED, ABDELRAHMAN WELL. PT HAS NO S/SX OF PAIN AND DISCOMFORT. IV SITE AT RIGHT HAND #20, LEFT HAND #22 RUNNING 1/2 NS AT 60 ML/HR. REMAINED ON NPO, WAITING FOR ST EVAL. BED IN LOW LOCKED POSITION, SRX2 UP FOR SAFETY, ON KCI MATTRESS, NEAR NURSING STATION. ENDORSED PT CARE TO NEXT SHIFT.
--- NOTE | 2020-05-19 19:30 | NUR ---
ms rn opening note received patient in bed. able to open eyes, has garbled speech. on oxygen 2l/min via nasal cannula. respirations are even and unlabored. no s/s sob noted. no s/s pain at this time. in no apparent distress. iv access in left hand #22 running 1/2 ns@60ml/hr and right hand#20 patent and saline locked. hob elevated in semi fowlers, side rials up x2. call light within reach. will continue to monitor.
[2020-05-19 20:00] VITALS: BP 127/68
[2020-05-19 20:11] VITALS: BP 128/68
[2020-05-19] MEDS: IV 1/2NS 1000 ML 1,000 ML IV PRN (22:42)
[2020-05-20] MEDS: VANCOMYCIN 500 MG in IV D5W 100 ML IV SCH ×2 (00:22→11:24)
--- NOTE | 2020-05-20 06:18 | NUR ---
ms rn closing note patient in bed. opens eyes. remains on oxygen 2l/min via nasal cannula. respirations are even and unlabored. no sob noted. no s/s pain t/o shift. no distress. iv access maintained in left hand #22 running 1/2 ns@60ml/hr and right hand#20 patent and saline locked. hob elevated in semi fowlers, side rials up x2, on special matress, turned q2hr. call light within reach. will endorse to next shift.
--- NOTE | 2020-05-20 07:19 | NUR ---
RN NOTES Received patient in bed resting comfortably in moderate high back rest. Opens eyes. On oxygen 2L/min via nasal cannula. No sign of distress noted at this time. IV access on left hand #22 running 1/2 NS @60ml/hr and right hand#20 patent and saline locked. Safety measures in place, bed place in lowest locked position with side rials up x2, on special mattress. call light within reach. will continue to monitor.
[2020-05-20] MEDS: PANTOPRAZOLE 40 MG TABLET.DR PO SCH (07:30)
[2020-05-20] MEDS: LEVOTHYROXINE SODIUM 75 MCG TABLET PO SCH (07:30)
[2020-05-20 08:00] VITALS: BP 157/76
[2020-05-20] MEDS: CITALOPRAM HYDROBROMIDE 20 MG TABLET PO SCH (08:23)
[2020-05-20] MEDS: LOSARTAN POTASSIUM 50 MG TABLET PO SCH (08:24)
[2020-05-20] MEDS: HYDROCHLOROTHIAZIDE 25 MG TABLET PO SCH (08:24)
[2020-05-20] MEDS: CALCIUM CARBONATE (1250) 500 MG TABLET PO SCH (08:25)
[2020-05-20] MEDS: ASCORBIC ACID 500 MG TABLET PO SCH (08:25)
[2020-05-20] MEDS: CARBIDOPA/LEVODOPA 25/100 MG 1 UDTAB PO SCH ×2 (08:25→12:03)
[2020-05-20] MEDS: CHOLECALCIFEROL 1,000 UNIT TABLET (VIT D3) PO SCH (08:25)
[2020-05-20] MEDS: VITAMIN B COMP W-C 1 TAB TABLET PO SCH (08:25)
[2020-05-20] MEDS: MEROPENEM 1 G in IV NS 0.9% 100 ML IV SCH (08:26)
[2020-05-20 08:33] LABS: BASOPHILS % (AUTO) 0.4 % (0.0-2.0); EOSINOPHILS % (AUTO) 2.2 % (0.0-6.0); HEMATOCRIT 25 % (33-45); HEMOGLOBIN 7.5 g/dL (11.5-14.8); LYMPHOCYTES # (AUTO) 1.1 /CMM (0.8-4.8); LYMPHOCYTES % (AUTO) 11.6 % (20.0-44.0); MEAN CORPUSCULAR HGB CONC 30 g/dl (31.0-36.0); MEAN CORPUSCULAR VOLUME 82 fL (82-100); MONOCYTES # (AUTO) 0.3 /CMM (0.1-1.30); MONOCYTES % (AUTO) 3.1 % (2.0-12.0); NEUTROPHILS # (AUTO) 8.1 /CMM (1.8-8.9); NEUTROPHILS % (AUTO) 82.7 % (43.0-81.0); PLATELET COUNT (AUTO) 408 /CMM (150-450); RED BLOOD CELL COUNT(AUTO) 3.05 MIL/uL (4.0-5.2); WHITE BLOOD COUNT (AUTO) 9.9 K/uL (4.3-11.0)
[2020-05-20 08:42] LABS: CALCIUM, SERUM 9.2 mg/dL (8.5-10.1); CREATININE 0.7 mg/dL (0.6-1.3); POTASSIUM 3.6 mmol/L (3.5-5.1)
--- NOTE | 2020-05-20 09:23 | NUR ---
WOUND CARE CONSULT: PT PRESENTS WITH MULTIPLE WOUNDS INCLUDING SACRAL STAGE 4 ULCER, BILATERAL HIP ULCERS, RT EAR DEEP TISSUE INJURY, RT BACK UNSTAGEABLE ULCER, LEFT LATERAL KNEE UNSTAGEABLE ULCER, RT LATERAL KNEE INTACT DEEP TISSUE INJURY AND FRAGILE SCAR TO LEFT ELBOW, ALL PRESENT ON ADMISSION. UPPER EXTREMITIES NOTED TO BE CONTRACTED. RECOMMEND SURGICAL CONSULT. DR ZIA PERKINS NOTIFIED OF CONSULT REQUEST. RECOMMENDATIONS MADE FOR SKIN PROTECTION AND WOUND CARE. DISCUSSED WITH NURSING STAFF. WILL SEE PRN. ABEBE IN AGREEMENT WITH PLAN OF CARE. PT IS ON FIRST ST[facility]. Addendum: 05/20/20 at 0926 by HANNAH STEVENS WNDNU Amended: Links added.
[2020-05-20] MEDS ORDERED: HYDROGEL DRESSING 90 GM TUBE TP PRN (09:30)
[2020-05-20] MEDS ORDERED: DAKINS QUARTER STRENGTH (0.125%) 480 ML BOTTLE TOP SCH (09:30)
[2020-05-20] MEDS: HYDROGEL DRESSING 90 GM TUBE TP SCH (11:23)
--- NOTE | 2020-05-20 11:35 | NUR ---
need to discuss dc planning options - home with hospice vs SNF .Left messages to gricelda Santiago [phone] Addendum: 05/20/20 at 1136 by BRUCE CLEMENTS RN Amended: Links added.
--- NOTE | 2020-05-20 12:13 | NUR ---
ROXY CONSULT: Medical Office Clerk received a consult to further assess the circumstances of the pt's excessive wounds she presented with upon admission. ROXY contacted the pt's RN, Titi to consult. Per Titi, the pt is non-verbal at this time and only opens her eyes. Per Titi, the pt presents with multiple pressure sores, possibly from lack of grooming. ROXY attempted to contact the pt's son, Jack ([phone]) to obtain more information. ROXY left a voicemail instructing pt's son to call ROXY back.
--- NOTE | 2020-05-20 12:26 | NUR ---
RN NOTES HELD PO MEDICATION, STILL ON NPO STATUS. DID NOT PASS ST EVAL. WILL CONTINUE TO MONITOR.
--- NOTE | 2020-05-20 12:30 | NUR ---
per he had discuss with gricelda Santiago plan of care. Patient will be placed on general inpatient with [facility] [phone]. Spoke with Donita carrillo patient. Addendum: 05/20/20 at 1825 by BRUCE CLEMENTS RN Amended: Links added.
--- NOTE | 2020-05-20 14:00 | NUR ---
RN NOTES SEEN AND EXAMINED BY DR. LEWIS, PER MD HE SPOKE TO FAMILY. PATIENT WILL BE IN COMFORT MEASURES, AWAITING ORDERS. WILL CONTINUE TO MONITOR.
[2020-05-20] MEDS ORDERED: LORAZEPAM INJ 2 MG/ML VIAL IV PRN (14:30)
[2020-05-20] MEDS ORDERED: SCOPOLAMINE HBR 1 EA PATCH.TD72 TD SCH (14:30)
[2020-05-20] MEDS: MORPHINE SULFATE PF DRIP 250 MG in IV D5W 240 ML IV PRN (15:18)
[2020-05-20 16:00] VITALS: BP 155/93
--- NOTE | 2020-05-20 18:30 | NUR ---
Garry Davis at [facility] [phone] patient was not accepted for GIP due to patient had exhausted Hospice hours/benefit to her previous hospice agency. Patient is started on morphine gtt and currently on comfort care measures. Spoke with gricelda Jack, aware and agreed with current plan of care. Addendum: 05/20/20 at 1830 by BRUCE CLEMENTS RN Amended: Links added.
--- NOTE | 2020-05-20 18:37 | NUR ---
RN NOTES Patient in bed resting comfortably in moderate high back rest. Opens eyes. On oxygen 2L/min via nasal cannula. IV access on left hand #22 with morphine drip @6ML/HR, On comfort measures only. Safety measures in place, bed place in lowest locked position with side rials up x2, on special mattress. call light within reach. will endorse to shift production supervisor nurse for dwayne.
--- NOTE | 2020-05-20 19:30 | NUR ---
ms rn opening note received patient in bed. opens eyes. on oxygen 2l/min via nasal cannula. respirations are even and unlabored. no s/s sob noted. no s/s pain noted. in no apparent distress. iv access in left hand #22 running morphine drip @6mg/hr and right hand#20 patent and saline locked. hob elevated in semi fowlers, side rials up x2, on special matrass. call light within reach. will continue to monitor.
[2020-05-20 20:00] VITALS: BP 115/60
--- NOTE | 2020-05-20 20:30 | NUR ---
ms rn note 2019 informed by another RN that patient has a critical result for preliminary blood culture gram positive cocci. read back will call md [id number] beard is inform of patients critical lab results and also informed patient is on comfort measures.
[2020-05-21] MEDS ORDERED: VANCOMYCIN 500 MG in IV D5W 100 ML IV SCH (06:00)
--- NOTE | 2020-05-21 06:44 | NUR ---
ms rn closing note patient in bed. on oxygen 1 L/min via nasal cannula. respirations are becoming less even and remain unlabored. no sob noted. no s/s pain noted t/o shift. no distress. iv access maintained in left hand #22 running morphine drip @6mg/hr. did not increase morphine drip d/t patient respirations less than 18. patient was comfortably asleep t/o shift. right hand#20 remains patent and saline locked. hob elevated in semi fowlers, side rials up x2, on special matrass, turned q2hr. call light within reach. will endorse to next shift.
--- NOTE | 2020-05-21 07:18 | NUR ---
RN NOTES Received patient in bed resting comfortably in moderate high back rest. Opens eyes. On oxygen 1L/min via nasal cannula. IV access on left hand #22 with morphine drip @6ML/HR, On comfort measures only. Safety measures in place, bed place in lowest locked position with side rials up x2, on special mattress. call light within reach. will continue to monitor.
[2020-05-21 08:00] VITALS: BP_SYST 158; BP_SYST 86; BP_DIAS 38; BP_DIAS 67
[2020-05-21] MEDS: HYDROGEL DRESSING 90 GM TUBE TP SCH (08:50)
[2020-05-21 16:05] VITALS: BP 76/34
--- NOTE | 2020-05-21 18:48 | NUR ---
RN NOTES Patient in bed resting comfortably in moderate high back rest. Opens eyes. On oxygen 1L/min via nasal cannula. IV access on left hand #22 with morphine drip @10ML/HR, On comfort measures only. Safety measures in place, bed place in lowest locked position with side rials up x2, on special mattress. call light within reach. will endorse to awake overnight counselor nurse for dwayne.
[2020-05-21] MEDS: MORPHINE SULFATE PF DRIP 250 MG in IV D5W 240 ML IV PRN (19:04)
--- NOTE | 2020-05-21 19:13 | NUR ---
ms rn note wasted morphine with Karishma TUCKER. wasted amount is 87.5ml. waste placed in RX destroyer. witnessed by karishma TUCKER.
--- NOTE | 2020-05-21 19:30 | NUR ---
ms rn opening note received patient in bed. on oxygen 1 L/min via nasal cannula. respirations are unlabored. no s/s sob noted. no s/s pain, patient is comfortable. no distress. iv access in left hand #22 running morphine drip @10mg/hr. right hand#20 patent and saline locked. hob elevated in semi fowlers, side rials up x3, on special matrass, extremities. call light within reach. will continue to monitor .
[2020-05-21 20:00] VITALS: BP 62/31
--- NOTE | 2020-05-21 21:00 | NUR ---
ms rn note patient has . no pulse, respirations, pupils are dilated and fixed, nonreactive to light. Flores TUCKER is witness and second confirmation that patient has . one legacy called case #[id number]. supervisor international reservations MD Dr. Butch Ramirez notified, admitting notified, family notified, nursing coke handling supervisor notified. no belongings. post mortem care done. son Ciaran Riveor will call with mortuary information tomorrow. informed nursing coke handling supervisor. will take down to our morgue.
--- NOTE | 2020-05-21 22:30 | NUR ---
ms rn note wasted morphine from [employer]ICIAN pump with Flores TUCKER. wasted amount of 236.3ml. Flores witness waste placed into RX destroyer in med room. [employer] log signed and cosigned.
== END 2020-05-21 20:25 | disposition expired | DRG 177 ==
LOC: ER 17:55 → TELE1 22:24 → MEDSG1 05-18 16:30 → MEDSG2 05-18 18:33
PROVIDERS: ADMIT Nurse Practitioner Acute Care; ATTEND Internal Medicine
DX: J15.6 Pneumonia due to other Gram-negative bacteria (principal); N17.0 Acute kidney failure with tubular necrosis; E43 Unspecified severe protein-calorie malnutrition; G93.41 Metabolic encephalopathy; N39.0 Urinary tract infection, site not specified; E87.0 Hyperosmolality and hypernatremia; I50.32 Chronic diastolic (congestive) heart failure; D68.59 Other primary thrombophilia; K92.2 Gastrointestinal hemorrhage, unspecified; J98.11 Atelectasis; Z66 Do not resuscitate; Z51.5 Encounter for palliative care; G20 Parkinson's disease; E78.5 Hyperlipidemia, unspecified; I25.10 Atherosclerotic heart disease of native coronary artery without angina pectoris; K21.9 Gastro-esophageal reflux disease without esophagitis; Z87.440 Personal history of urinary (tract) infections; E03.9 Hypothyroidism, unspecified; Z88.0 Allergy status to penicillin; Z98.890 Other specified postprocedural states; D50.9 Iron deficiency anemia, unspecified; E86.1 Hypovolemia; L89.159 Pressure ulcer of sacral region, unspecified stage; E86.0 Dehydration; I11.0 Hypertensive heart disease with heart failure; F02.80 Dementia in other diseases classified elsewhere, unspecified severity, without behavioral disturbance, psychotic disturbance, mood disturbance, and anxiety; Z74.09 Other reduced mobility; R62.7 Adult failure to thrive; B96.89 Other specified bacterial agents as the cause of diseases classified elsewhere; F32.9 Major depressive disorder, single episode, unspecified; Z74.01 Bed confinement status; Z90.49 Acquired absence of other specified parts of digestive tract; Z79.899 Other long term (current) drug therapy; I70.0 Atherosclerosis of aorta; L89.899 Pressure ulcer of other site, unspecified stage; S51.009A Unspecified open wound of unspecified elbow, initial encounter; X58.XXXA Exposure to other specified factors, initial encounter; Y92.9 Unspecified place or not applicable; M43.17 Spondylolisthesis, lumbosacral region; Z90.710 Acquired absence of both cervix and uterus
CPT/HCPCS: 36415; 70450-TC; 71045-TC; 80048-TC; 80061-TC; 80076-TC; 80202-TC; 80305; 81000-TC; 82140-TC; 82272-TC; 82728-TC; 83540-TC; 83605-TC; 83615-TC; 83735-TC; 84100-TC; 84439-TC; 84443-TC; 84484-TC; 85025-TC; 85027-TC; 85730-TC; 86140-TC; 86850-TC; 86921-TC; 87040-TC; 87070-TC; 87081-TC; 87086-TC; 87186-TC; 92611-TC; A6248; A6253; A6403; G0378; G0480; J2185; J2274; J3370; J3490; J7030; J7050; J7060; P9016-BL; Q9967; U0003-CS